=== PATIENT | female | born 1955 ===

== ENCOUNTER 2022-10-10 21:14 | Emergency (ER) | payer SELFPAY ==
[~2022-10-10] VITALS: Ht 157.5 cm; Wt 75.7 kg
[2022-10-10] MEDS ORDERED: SERT50TA PO (23:51)
[2022-10-10] MEDS ORDERED: LEVO50TA PO (23:51)
[2022-10-10] MEDS ORDERED: METO-357 PO (23:51)
[2022-10-10] MEDS ORDERED: TRAZ-252 PO (23:51)
[2022-10-10] MEDS ORDERED: ONDA4TAB5 PO (23:51)
[2022-10-10] MEDS ORDERED: CALC300T4 PO (23:51)
[2022-10-10] MEDS ORDERED: DEXT33GE7 PO (23:51)
[2022-10-10] MEDS ORDERED: DOCU250C14 PO (23:51)
[2022-10-10] MEDS ORDERED: CYAN100T44 PO ×2 (23:51)
[2022-10-10] MEDS ORDERED: LEVA0.6320 IH (23:51)
[2022-10-10] MEDS ORDERED: HYDR25TA86 PO (23:51)
[2022-10-10] MEDS ORDERED: METF-442 PO (23:51)
[2022-10-10] MEDS ORDERED: POLY17PO4 PO (23:51)
[2022-10-10] MEDS ORDERED: MAGN400T8 PO (23:51)
[2022-10-10] MEDS ORDERED: APIX5TAB PO (23:51)
[2022-10-10] MEDS ORDERED: AZAT50TA18 PO (23:51)
[2022-10-10] MEDS ORDERED: ACET-73 PO (23:51)
[2022-10-10] MEDS ORDERED: DAPA10TA PO (23:51)
[2022-10-10] MEDS ORDERED: IPRA0.2S6 NEB (23:51)
[2022-10-10] MEDS ORDERED: ATOR40TA PO (23:51)
[2022-10-10] MEDS ORDERED: BISA10SU61 RC (23:51)
[2022-10-10] MEDS ORDERED: POLY15DR27 EACHEYE (23:51)
[2022-10-10] MEDS ORDERED: LOSA50TA3 PO (23:51)
[2022-10-10] MEDS ORDERED: LIDO30AD10 TD (23:51)
[2022-10-10] MEDS ORDERED: INSU3INS6 SQ (23:51)
[2022-10-10] MEDS ORDERED: PANT40TA2 PO (23:51)
[2022-10-10] MEDS ORDERED: GLUC1KIT2 IJ (23:51)
[2022-10-10] MEDS ORDERED: GABA-532 PO (23:51)
[2022-10-10] MEDS ORDERED: INSU200I SQ (23:51)
[2022-10-11] MEDS ORDERED: MICO200S3 VG (07:12)
== END 2022-10-10 22:34 | disposition left against medical advice (07) ==
LOC: ER 21:14
DX: Z53.21 Procedure and treatment not carried out due to patient leaving prior to being seen by health care provider (principal)
CPT/HCPCS: A4663

== ENCOUNTER 2022-10-10 21:51 | Inpatient (IN) | payer MEDICARE, OTHER ==
[~2022-10-10] VITALS: Ht 157.5 cm; Wt 77.1 kg
[2022-10-10 22:10] VITALS: BP 122/65
--- NOTE | 2022-10-10 23:00 | NUR ---
2210- The patient is admitted to the ARU unit. The patient comes from [facility].The patient is aox4 and awake. The patient verbalizes needs and follows directions. There is no respiraotry distress. The patient has left sided weakness. The patient has a patent IV on the right hand 22g that is clean, dry, and intact. Notified MD of the patients arrival to the unit. Call light within reach, two side rails up, bed alarm on, bed on lowest position, and wheels lock. Will continue to monitor throughout the shift. 0100- The patient is watching television. The patient request for an extra blanket. Item is given to the patient. The patient has no sob. Will continue to monitor throughout the shift. 0300- The patient is asleep and has no complains of pain. Will continue to monitor throughout the shift.
[2022-10-10] MEDS ORDERED: LOSA50TA3 PO (23:51)
[2022-10-10] MEDS ORDERED: BISA10SU61 RC (23:51)
[2022-10-10] MEDS ORDERED: GABA-532 PO (23:51)
[2022-10-10] MEDS ORDERED: ATOR40TA PO (23:51)
[2022-10-10] MEDS ORDERED: METF-442 PO (23:51)
[2022-10-10] MEDS ORDERED: LEVA0.6320 IH (23:51)
[2022-10-10] MEDS ORDERED: DAPA10TA PO (23:51)
[2022-10-10] MEDS ORDERED: CYAN100T44 PO ×2 (23:51)
[2022-10-10] MEDS ORDERED: HYDR25TA86 PO (23:51)
[2022-10-10] MEDS ORDERED: APIX5TAB PO (23:51)
[2022-10-10] MEDS ORDERED: AZAT50TA18 PO (23:51)
[2022-10-10] MEDS ORDERED: ONDA4TAB5 PO (23:51)
[2022-10-10] MEDS ORDERED: DOCU250C14 PO (23:51)
[2022-10-10] MEDS ORDERED: INSU200I SQ (23:51)
[2022-10-10] MEDS ORDERED: IPRA0.2S6 NEB (23:51)
[2022-10-10] MEDS ORDERED: DEXT33GE7 PO (23:51)
[2022-10-10] MEDS ORDERED: INSU3INS6 SQ (23:51)
[2022-10-10] MEDS ORDERED: CALC300T4 PO (23:51)
[2022-10-10] MEDS ORDERED: LIDO30AD10 TD (23:51)
[2022-10-10] MEDS ORDERED: METO-357 PO (23:51)
[2022-10-10] MEDS ORDERED: SERT50TA PO (23:51)
[2022-10-10] MEDS ORDERED: MAGN400T8 PO (23:51)
[2022-10-10] MEDS ORDERED: PANT40TA2 PO (23:51)
[2022-10-10] MEDS ORDERED: GLUC1KIT2 IJ (23:51)
[2022-10-10] MEDS ORDERED: TRAZ-252 PO (23:51)
[2022-10-10] MEDS ORDERED: POLY15DR27 EACHEYE (23:51)
[2022-10-10] MEDS ORDERED: ACET-73 PO (23:51)
[2022-10-10] MEDS ORDERED: LEVO50TA PO (23:51)
[2022-10-10] MEDS ORDERED: POLY17PO4 PO (23:51)
[2022-10-11] MEDS ORDERED: REMEDY ESSENTIAL ZINC PASTE 113 GM TOP PRN (00:30)
[2022-10-11 05:00] VITALS: BP 115/60
[2022-10-11] MEDS ORDERED: MICO200S3 VG (07:12)
[2022-10-11] MEDS ORDERED: DEXTROSE 50% 50 ML DISP.SYRIN IV PRN ×2 (07:15→18:45)
[2022-10-11 07:42] VITALS: BP 134/53
[2022-10-11] MEDS: BLOOD SUGAR DIAGNOSTIC 1 EACH STRIP VI SCH ×4 (08:09→21:00)
[2022-10-11 16:32] VITALS: BP 109/52
[2022-10-11] MEDS: INSULIN REGULAR, HUMAN 300 UNIT/3 ML VIAL SQ PRN (17:12)
[2022-10-11] MEDS ORDERED: ONDANSETRON HCL 4 MG TABLET PO PRN (18:30)
[2022-10-11] MEDS ORDERED: CALCIUM CARBONATE 500 MG TAB.CHEW PO PRN (18:30)
[2022-10-11] MEDS ORDERED: BISACODYL 10 MG SUPP.RECT RC PRN (18:30)
[2022-10-11] MEDS ORDERED: hydrALAZINE HCL 25 MG TABLET PO PRN (18:30)
[2022-10-11] MEDS ORDERED: MIRALAX 17 GM POWD.PACK PO PRN (18:30)
[2022-10-11] MEDS ORDERED: Medication Not On Formulary EA (Metformin Hcl 1,000 MG) PO SCH (18:30)
[2022-10-11] MEDS ORDERED: IPRATROPIUM BROMIDE 0.5 MG/2.5 ML NEBU NEB PRN (18:30)
[2022-10-11] MEDS ORDERED: TRAZODONE 50 MG TABLET PO PRN (18:30)
[2022-10-11] MEDS ORDERED: DOCUSATE SODIUM 100 MG CAPSULE PO PRN (18:30)
[2022-10-11] MEDS ORDERED: ALBUTEROL SULFATE 1.25 MG/3 ML NEBU NEB PRN (18:30)
[2022-10-11] MEDS: GABAPENTIN 300 MG CAPSULE PO SCH (19:41)
[2022-10-11] MEDS: ATORVASTATIN 40 MG TABLET PO SCH (20:13)
[2022-10-11] MEDS: APIXABAN 5 MG TABLET PO SCH (20:24)
[2022-10-11 20:31] VITALS: BP 166/86
[2022-10-11] MEDS: POLYVINYL ALCOHOL OPHT DROPS 15 ML BOTTLE EACHEYE PRN (20:42)
[2022-10-11] MEDS ORDERED: BLOOD SUGAR DIAGNOSTIC 1 EACH STRIP VI SCH (21:00)
[2022-10-11] MEDS: INSULIN REGULAR, HUMAN 300 UNITS/3 ML VIAL SQ PRN (21:05)
--- NOTE | 2022-10-11 23:00 | NUR ---
1915- DC duplicate order at md request for insulin sliding scale. The patient is aox4 and awake. The patient verbalizes needs and follows directions. There is no respiraotry distress. The patient has left sided weakness. Call light within reach, two side rails up, bed alarm on, bed on lowest position, and wheels lock. Will continue to monitor throughout the shift. 2200- The patient is watching television. The patient request for an extra pillow. Item is given to the patient. The patient has no sob or complains of pain. Will continue to monitor throughout the shift. 0200- The patient is asleep and has no complains of pain or sob. Will continue to monitor throughout the shift.
[2022-10-12 04:18] VITALS: BP 139/57
[2022-10-12] MEDS: PANTOPRAZOLE SODIUM 40 MG TABLET.DR PO SCH (06:30)
[2022-10-12] MEDS: LEVOTHYROXINE SODIUM 50 MCG TABLET PO SCH (06:30)
[2022-10-12] MEDS: BLOOD SUGAR DIAGNOSTIC 1 EACH STRIP VI SCH ×4 (07:30→22:24)
[2022-10-12 07:33] VITALS: BP 131/57
[2022-10-12] MEDS ORDERED: CYANOCOBALAMIN 100 MCG TABLET PO SCH (09:00)
[2022-10-12] MEDS: GABAPENTIN 300 MG CAPSULE PO SCH ×2 (09:36→16:30)
[2022-10-12] MEDS: MAGNESIUM OXIDE 250 MG TABLET PO SCH (09:36)
[2022-10-12] MEDS: SERTRALINE HCL 50 MG TABLET PO SCH (09:39)
[2022-10-12] MEDS: CYANOCOBALAMIN 100 MCG TABLET PO SCH (09:39)
[2022-10-12] MEDS: METOPROLOL SUCCINATE XL 50 MG TAB.SR.24H PO SCH ×2 (09:39→16:30)
[2022-10-12] MEDS: LOSARTAN POTASSIUM 50 MG TABLET PO SCH ×2 (09:40→16:30)
[2022-10-12] MEDS: AZATHIOPRINE 50 MG TABLET PO SCH (09:40)
[2022-10-12] MEDS: APIXABAN 5 MG TABLET PO SCH ×2 (09:41→22:26)
[2022-10-12] MEDS: ACETAMINOPHEN 325 MG TABLET PO PRN (09:59)
[2022-10-12] MEDS: LIDOCAINE 5% PATCH TD SCH ×2 (10:59)
[2022-10-12] MEDS: INSULIN REGULAR, HUMAN 300 UNIT/3 ML VIAL SQ PRN (12:29)
[2022-10-12] MEDS: CLOTRIMAZOLE 1% VAG CREAM 45 GM TUBE VG SCH (12:31)
[2022-10-12 15:26] VITALS: BP 134/61
[2022-10-12] MEDS: GLUCERNA SHAKE 237 ML CAN PO SCH (16:31)
[2022-10-12] MEDS: METFORMIN HCL 500 MG TABLET PO SCH (17:09)
[2022-10-12 20:00] VITALS: BP 123/62
[2022-10-12] MEDS: ATORVASTATIN 40 MG TABLET PO SCH (22:24)
[2022-10-12] MEDS: INSULIN REGULAR, HUMAN 300 UNITS/3 ML VIAL SQ PRN (22:25)
[2022-10-13] MEDS: LEVOTHYROXINE SODIUM 50 MCG TABLET PO SCH (06:10)
[2022-10-13] MEDS: PANTOPRAZOLE SODIUM 40 MG TABLET.DR PO SCH (06:10)
[2022-10-13] MEDS: BLOOD SUGAR DIAGNOSTIC 1 EACH STRIP VI SCH ×4 (06:26→20:57)
[2022-10-13 07:06] VITALS: BP 132/59
[2022-10-13] MEDS: INSULIN REGULAR, HUMAN 300 UNIT/3 ML VIAL SQ PRN ×3 (08:35→16:55)
[2022-10-13 08:51] VITALS: BP 135/59
[2022-10-13] MEDS ORDERED: Dapagliflozin Propanediol (Farxiga) 10 MG) PO SCH (09:00)
[2022-10-13] MEDS: GABAPENTIN 300 MG CAPSULE PO SCH ×2 (09:44→16:45)
[2022-10-13] MEDS: METFORMIN HCL 500 MG TABLET PO SCH ×2 (09:44→17:43)
[2022-10-13] MEDS: CYANOCOBALAMIN 100 MCG TABLET PO SCH (09:45)
[2022-10-13] MEDS: METOPROLOL SUCCINATE XL 50 MG TAB.SR.24H PO SCH ×2 (09:45→16:48)
[2022-10-13] MEDS: LOSARTAN POTASSIUM 50 MG TABLET PO SCH ×2 (09:45→16:48)
[2022-10-13] MEDS: MAGNESIUM OXIDE 250 MG TABLET PO SCH (09:45)
[2022-10-13] MEDS: SERTRALINE HCL 50 MG TABLET PO SCH (09:45)
[2022-10-13] MEDS: AZATHIOPRINE 50 MG TABLET PO SCH (09:46)
[2022-10-13] MEDS: LIDOCAINE 5% PATCH TD SCH ×2 (09:47)
[2022-10-13] MEDS: APIXABAN 5 MG TABLET PO SCH ×2 (09:48→20:53)
[2022-10-13] MEDS: GLUCERNA SHAKE 237 ML CAN PO SCH ×2 (09:49→16:47)
[2022-10-13] MEDS: POLYVINYL ALCOHOL OPHT DROPS 15 ML BOTTLE EACHEYE PRN (09:50)
--- NOTE | 2022-10-13 11:25 | NUR ---
INDIVIDUALIZED PLAN OF CARE
[2022-10-13 16:07] VITALS: BP 117/51
--- NOTE | 2022-10-13 19:42 | NUR ---
RECEIVED REPORT FROM FELIPA SPRAGUE RN. PATIENT IS ALERT & ORIENTED X4, AND ABLE TO SPEAK VIETNAMESE. VITAL SIGNS STABLE. PATIENT TOLERATES PO MEDICATIONS AND DIET. PATIENT VOIDS ADEQUATELY. PARTICIPATES WITH PHYSICAL AND OCCUPATIONAL THERAPY SCHEDULED. PATIENT TIM PAIN, BUT DENIES MEDICATIONS TO TREAT. NO ACUTE DISTRESS NOTED. FALL PRECAUTIONS IN PLACE. ALL NEEDS MET AT THIS TIME. ENDORSED CARE TO FELIPA SPRAGUE RN, FOR CONTINUATION OF CARE.
[2022-10-13 20:00] VITALS: BP 102/72
[2022-10-13] MEDS: ATORVASTATIN 40 MG TABLET PO SCH (20:53)
[2022-10-13] MEDS: CLOTRIMAZOLE 1% VAG CREAM 45 GM TUBE VG SCH (20:54)
[2022-10-13] MEDS: INSULIN REGULAR, HUMAN 300 UNITS/3 ML VIAL SQ PRN (21:00)
[2022-10-14 04:00] VITALS: BP 102/44
[2022-10-14] MEDS: LEVOTHYROXINE SODIUM 50 MCG TABLET PO SCH (06:25)
[2022-10-14] MEDS: PANTOPRAZOLE SODIUM 40 MG TABLET.DR PO SCH (06:25)
[2022-10-14] MEDS: BLOOD SUGAR DIAGNOSTIC 1 EACH STRIP VI SCH ×4 (06:29→21:23)
[2022-10-14 08:00] VITALS: BP 134/72
[2022-10-14] MEDS: METFORMIN HCL 500 MG TABLET PO SCH ×2 (08:07→17:33)
[2022-10-14] MEDS: GLUCERNA SHAKE 237 ML CAN PO SCH ×2 (08:08→17:18)
[2022-10-14] MEDS: GABAPENTIN 300 MG CAPSULE PO SCH ×2 (08:49→17:17)
[2022-10-14] MEDS: LOSARTAN POTASSIUM 50 MG TABLET PO SCH ×2 (08:50→17:17)
[2022-10-14] MEDS: METOPROLOL SUCCINATE XL 50 MG TAB.SR.24H PO SCH ×2 (08:50→17:17)
[2022-10-14] MEDS: CYANOCOBALAMIN 100 MCG TABLET PO SCH (08:51)
[2022-10-14] MEDS: SERTRALINE HCL 50 MG TABLET PO SCH (08:51)
[2022-10-14] MEDS: APIXABAN 5 MG TABLET PO SCH ×2 (08:52→21:15)
[2022-10-14] MEDS: LIDOCAINE 5% PATCH TD SCH ×2 (08:55→09:23)
[2022-10-14] MEDS: MAGNESIUM OXIDE 250 MG TABLET PO SCH (09:28)
[2022-10-14] MEDS: DAPAGLIFLOZIN PROPANEDIOL 5 MG TABLET PO SCH (09:29)
[2022-10-14] MEDS: AZATHIOPRINE 50 MG TABLET PO SCH (09:29)
[2022-10-14] MEDS: INSULIN REGULAR, HUMAN 300 UNIT/3 ML VIAL SQ PRN ×3 (12:21→21:29)
[2022-10-14 16:00] VITALS: BP 127/67
--- NOTE | 2022-10-14 16:19 | NUR ---
0730-Rec'd patient in bed, awake, able to verbalize her needs, denies pain. No acute respiratory distress noted; no s/s of hypo/hyperglycemia, oral fluids offered and taken well, encouraged to use call light for help with good understanding. 0900-Scheduled medication administered as ordered, no ASE noted. Oral fluids taken well. Assist as needed.
--- NOTE | 2022-10-14 18:45 | NUR ---
Patient cooperative with her care/nurses and her treatment, needs attended well and me. No SILVIA or unusual happenings during shift. All needs anticipated and met.
[2022-10-14 20:00] VITALS: BP 122/55
[2022-10-14] MEDS: ATORVASTATIN 40 MG TABLET PO SCH (21:14)
[2022-10-14] MEDS: CLOTRIMAZOLE 1% VAG CREAM 45 GM TUBE VG SCH (21:17)
[2022-10-15 05:57] VITALS: BP 119/57
[2022-10-15] MEDS: BLOOD SUGAR DIAGNOSTIC 1 EACH STRIP VI SCH ×4 (06:11→20:33)
[2022-10-15] MEDS: PANTOPRAZOLE SODIUM 40 MG TABLET.DR PO SCH (06:11)
[2022-10-15] MEDS: LEVOTHYROXINE SODIUM 50 MCG TABLET PO SCH (06:11)
[2022-10-15] MEDS: METFORMIN HCL 500 MG TABLET PO SCH ×2 (07:53→17:35)
[2022-10-15] MEDS: INSULIN REGULAR, HUMAN 300 UNIT/3 ML VIAL SQ PRN ×3 (07:55→17:33)
[2022-10-15 08:01] VITALS: BP 110/43
[2022-10-15] MEDS: GABAPENTIN 300 MG CAPSULE PO SCH ×2 (08:41→16:39)
[2022-10-15] MEDS: LOSARTAN POTASSIUM 50 MG TABLET PO SCH ×2 (08:41→16:41)
[2022-10-15] MEDS: SERTRALINE HCL 50 MG TABLET PO SCH (08:42)
[2022-10-15] MEDS: LIDOCAINE 5% PATCH TD SCH ×2 (08:42→09:24)
[2022-10-15] MEDS: CYANOCOBALAMIN 100 MCG TABLET PO SCH (08:42)
[2022-10-15] MEDS: METOPROLOL SUCCINATE XL 50 MG TAB.SR.24H PO SCH ×2 (08:42→16:42)
[2022-10-15] MEDS: MAGNESIUM OXIDE 250 MG TABLET PO SCH (08:43)
[2022-10-15] MEDS: AZATHIOPRINE 50 MG TABLET PO SCH (08:44)
[2022-10-15] MEDS: DAPAGLIFLOZIN PROPANEDIOL 5 MG TABLET PO SCH (08:44)
[2022-10-15] MEDS: APIXABAN 5 MG TABLET PO SCH ×2 (08:45→20:21)
[2022-10-15] MEDS: GLUCERNA SHAKE 237 ML CAN PO SCH ×2 (08:47→17:23)
--- NOTE | 2022-10-15 10:54 | NUR ---
0730-Rec'd patient in bed awake, VSS, denies pain. No resp. distress noted, no s/s of hypo/hyperglycemia, oral fluids offered and taken well. Safety measures in place and call light at reach. 0900-scheduled medication administered as ordered with no ASE noted., Lidocaine patch applied to left shoulder. Oral fluids taken well. Will monitor.
--- NOTE | 2022-10-15 14:45 | NUR ---
INTERDISCIPLINARY TEAM CONFERENCE
[2022-10-15 16:00] VITALS: BP 126/55
--- NOTE | 2022-10-15 19:03 | NUR ---
Patient c/o slight vaginal bleeding upon urination when she was assisted to the toilet and noticed upon wiping herself. Asked patient if she was experiencing any bladder pain/discomfort and denied. Per Dr. Hyatt, to do a UA. Patient refused to straight cath, stated she'll collect sample herself tomorrow when she uses the toilet. Endorsed appropriately to incoming relieving RN.
[2022-10-15 20:00] VITALS: BP 112/48
--- NOTE | 2022-10-15 20:00 | NUR ---
NSG: Received patient lying in bed. a/o x4. no c/o pain or discomfort at this time. No acute respiratory distress noted; no s/s of hypo/hyperglycemia, oral fluids offered and taken well call light w/in reach.
[2022-10-15] MEDS: ATORVASTATIN 40 MG TABLET PO SCH (20:19)
[2022-10-15] MEDS: CLOTRIMAZOLE 1% VAG CREAM 45 GM TUBE VG SCH (20:21)
[2022-10-15] MEDS: INSULIN REGULAR, HUMAN 300 UNITS/3 ML VIAL SQ PRN (20:33)
--- NOTE | 2022-10-16 01:05 | NUR ---
nsg: patient is resting quietly. no s/s of pain or discomfort at this time. call light w/in reach.
[2022-10-16 04:00] VITALS: BP 118/49
--- NOTE | 2022-10-16 06:17 | NUR ---
NSG: Remain calm and cooperative through the shift. no c/o pain or discomfort at this time. call light w/in reach.
[2022-10-16] MEDS: LEVOTHYROXINE SODIUM 50 MCG TABLET PO SCH (06:21)
[2022-10-16] MEDS: PANTOPRAZOLE SODIUM 40 MG TABLET.DR PO SCH (06:21)
[2022-10-16] MEDS: BLOOD SUGAR DIAGNOSTIC 1 EACH STRIP VI SCH ×4 (06:29→20:54)
[2022-10-16] MEDS: METFORMIN HCL 500 MG TABLET PO SCH ×2 (07:49→17:39)
[2022-10-16 08:01] VITALS: BP 139/43
[2022-10-16] MEDS: INSULIN REGULAR, HUMAN 300 UNIT/3 ML VIAL SQ PRN ×3 (09:18→16:41)
[2022-10-16] MEDS: APIXABAN 5 MG TABLET PO SCH ×2 (09:21→20:45)
[2022-10-16] MEDS: GABAPENTIN 300 MG CAPSULE PO SCH ×2 (09:22→16:20)
[2022-10-16] MEDS: MAGNESIUM OXIDE 250 MG TABLET PO SCH (09:22)
[2022-10-16] MEDS: DAPAGLIFLOZIN PROPANEDIOL 5 MG TABLET PO SCH (09:22)
[2022-10-16] MEDS: CYANOCOBALAMIN 100 MCG TABLET PO SCH (09:22)
[2022-10-16] MEDS: AZATHIOPRINE 50 MG TABLET PO SCH (09:23)
[2022-10-16] MEDS: SERTRALINE HCL 50 MG TABLET PO SCH (09:23)
[2022-10-16] MEDS: LOSARTAN POTASSIUM 50 MG TABLET PO SCH ×3 (09:26→16:27)
[2022-10-16] MEDS: METOPROLOL SUCCINATE XL 50 MG TAB.SR.24H PO SCH ×2 (09:26→17:00)
[2022-10-16] MEDS: GLUCERNA SHAKE 237 ML CAN PO SCH ×2 (09:26→17:00)
[2022-10-16] MEDS: LIDOCAINE 5% PATCH TD SCH ×2 (09:26→09:31)
[2022-10-16 09:59] LABS: *BILIRUBIN,URIN NEGATIVE (NEGATIVE); *BLOOD, URINE NEGATIVE (NEGATIVE); *CLARITY,URINE SLIGHTLY CLOUDY (CLEAR); *COLOR,URINE YELLOW (YELLOW); *KETONES,URINE NEGATIVE (NEGATIVE); *UROBILINOGEN,URINE 0.2 E.U./dl (NORMAL); LEUKOCYTE ESTERASE ,URINE NEGATIVE (NEGATIVE); NITRITE, URINE NEGATIVE (NEGATIVE); UGLUCOSE 3+ (NEGATIVE)
[2022-10-16 13:39] LABS: BACTERIA,URINE MODERATE /HPF (NONE SEEN); RBC,URINE 0-3 /HPF (0-3); SQUAMOUS EPITHELIAL CELL,UR FEW /HPF (NONE SEEN); WBC,URINE 0-3 /HPF (0-3)
[2022-10-16 15:50] VITALS: BP 112/56
[2022-10-16 20:00] VITALS: BP 107/45
[2022-10-16] MEDS: ATORVASTATIN 40 MG TABLET PO SCH (20:44)
[2022-10-16] MEDS: CLOTRIMAZOLE 1% VAG CREAM 45 GM TUBE VG SCH (20:45)
[2022-10-16] MEDS: INSULIN REGULAR, HUMAN 300 UNITS/3 ML VIAL SQ PRN (20:56)
[2022-10-17 04:00] VITALS: BP 130/78
--- NOTE | 2022-10-17 04:05 | NUR ---
NSG: Remain calm and cooperative. slept will. assisted with adl's. resting in bed comfortably. call light w/in reach.
[2022-10-17] MEDS: LEVOTHYROXINE SODIUM 50 MCG TABLET PO SCH (06:09)
[2022-10-17] MEDS: PANTOPRAZOLE SODIUM 40 MG TABLET.DR PO SCH (06:09)
[2022-10-17] MEDS: BLOOD SUGAR DIAGNOSTIC 1 EACH STRIP VI SCH ×4 (06:22→21:04)
[2022-10-17] MEDS: LIDOCAINE 5% PATCH TD SCH ×2 (09:17→09:22)
[2022-10-17] MEDS: METOPROLOL SUCCINATE XL 50 MG TAB.SR.24H PO SCH ×2 (09:18→17:23)
[2022-10-17] MEDS: CYANOCOBALAMIN 100 MCG TABLET PO SCH (09:18)
[2022-10-17] MEDS: SERTRALINE HCL 50 MG TABLET PO SCH (09:18)
[2022-10-17] MEDS: GABAPENTIN 300 MG CAPSULE PO SCH ×2 (09:18→17:20)
[2022-10-17] MEDS: METFORMIN HCL 500 MG TABLET PO SCH ×2 (09:18→17:20)
[2022-10-17] MEDS: LOSARTAN POTASSIUM 50 MG TABLET PO SCH ×2 (09:18→17:20)
[2022-10-17] MEDS: APIXABAN 5 MG TABLET PO SCH ×2 (09:19→21:06)
[2022-10-17] MEDS: MAGNESIUM OXIDE 250 MG TABLET PO SCH (09:20)
[2022-10-17] MEDS: AZATHIOPRINE 50 MG TABLET PO SCH (09:20)
[2022-10-17] MEDS: DAPAGLIFLOZIN PROPANEDIOL 5 MG TABLET PO SCH (09:20)
[2022-10-17] MEDS: GLUCERNA SHAKE 237 ML CAN PO SCH ×2 (09:23→17:21)
[2022-10-17 15:10] VITALS: BP 116/53
[2022-10-17 20:00] VITALS: BP 145/61
[2022-10-17] MEDS: ATORVASTATIN 40 MG TABLET PO SCH (20:52)
[2022-10-17] MEDS: CLOTRIMAZOLE 1% VAG CREAM 45 GM TUBE VG SCH (20:53)
[2022-10-17] MEDS: INSULIN REGULAR, HUMAN 300 UNITS/3 ML VIAL SQ PRN (21:09)
--- NOTE | 2022-10-18 04:01 | NUR ---
Awake alert and oriented. VSS Needs attended. All due meds given without difficulty. No complaints presented during the shift. Admitted for CVA with left side hemiparesis. Continent of bowel and bladder. Will monitor patient. Fall precautions maintained.
[2022-10-18] MEDS: PANTOPRAZOLE SODIUM 40 MG TABLET.DR PO SCH (06:20)
[2022-10-18] MEDS: LEVOTHYROXINE SODIUM 50 MCG TABLET PO SCH (06:39)
[2022-10-18] MEDS: BLOOD SUGAR DIAGNOSTIC 1 EACH STRIP VI SCH ×4 (06:40→21:05)
[2022-10-18] MEDS: GLUCERNA SHAKE 237 ML CAN PO SCH ×2 (08:48→17:41)
[2022-10-18] MEDS: DAPAGLIFLOZIN PROPANEDIOL 5 MG TABLET PO SCH (08:49)
[2022-10-18] MEDS: GABAPENTIN 300 MG CAPSULE PO SCH ×2 (08:49→17:33)
[2022-10-18] MEDS: AZATHIOPRINE 50 MG TABLET PO SCH (08:49)
[2022-10-18] MEDS: MAGNESIUM OXIDE 250 MG TABLET PO SCH (08:49)
[2022-10-18] MEDS: METFORMIN HCL 500 MG TABLET PO SCH ×2 (08:50→17:33)
[2022-10-18] MEDS: LIDOCAINE 5% PATCH TD SCH ×2 (08:50→09:16)
[2022-10-18] MEDS: SERTRALINE HCL 50 MG TABLET PO SCH (08:50)
[2022-10-18] MEDS: CYANOCOBALAMIN 100 MCG TABLET PO SCH (08:50)
[2022-10-18] MEDS: METOPROLOL SUCCINATE XL 50 MG TAB.SR.24H PO SCH ×2 (08:52→17:35)
[2022-10-18] MEDS: APIXABAN 5 MG TABLET PO SCH ×2 (08:54→20:59)
[2022-10-18] MEDS: LOSARTAN POTASSIUM 50 MG TABLET PO SCH ×2 (08:56→17:00)
[2022-10-18 08:58] VITALS: BP 118/45
--- NOTE | 2022-10-18 09:35 | NUR ---
Dr. Stahl at pt bedside. Notified of pt feeling sleepy in the mornings, "which is not my normal". stated he will check her labs to make sure her thyroid is ok. Pt c/o Left shoulder pain 4/10 and wants her Lidocaine patches after her shower. Per PT Og, pt also c/o tingling in Left knee. Will give medications as ordered and continue to monitor.
[2022-10-18] MEDS: INSULIN REGULAR, HUMAN 300 UNIT/3 ML VIAL SQ PRN ×2 (12:23→17:57)
[2022-10-18 16:32] VITALS: BP 131/71
--- NOTE | 2022-10-18 19:25 | NUR ---
Endorsed pt to austin [place] RN. Pt stable, no s/s of distress noted, no SOB.
[2022-10-18 20:07] VITALS: BP 140/75
[2022-10-18] MEDS: ATORVASTATIN 40 MG TABLET PO SCH (20:58)
[2022-10-18] MEDS: CLOTRIMAZOLE 1% VAG CREAM 45 GM TUBE VG SCH (20:58)
[2022-10-19 04:47] VITALS: BP 106/62
--- NOTE | 2022-10-19 04:52 | NUR ---
Quiet night. AAOx4 No acute distress noted. VSS. All needs attended. Continent of bowel and bladder. All due meds given. Denies any pain nor any discomfort. Will monitor patient.
[2022-10-19] MEDS: PANTOPRAZOLE SODIUM 40 MG TABLET.DR PO SCH (06:01)
[2022-10-19] MEDS: LEVOTHYROXINE SODIUM 50 MCG TABLET PO SCH (06:01)
[2022-10-19] MEDS: BLOOD SUGAR DIAGNOSTIC 1 EACH STRIP VI SCH ×4 (06:31→20:57)
[2022-10-19 06:55] LABS: HEMATOCRIT 35.8 % (31.2-41.9); MEAN CORPUSCULAR HEMOGLOBIN 29.8 uug (24.7-32.8); PLATELET COUNT (AUTO) 199 K/uL (179-408)
[2022-10-19 07:34] VITALS: BP 104/41
[2022-10-19 07:42] LABS: BILIRUBIN,TOTAL 0.7 mg/dL (0.2-1.0); CREATININE 0.9 mg/dL (0.6-1.3); MAGNESIUM 1.6 mg/dL (1.8-2.4); PHOSPHOROUS 3.8 mg/dL (2.5-4.9); POTASSIUM 3.9 mmol/L (3.5-5.1); TOTAL PROTEIN, SERUM 6.7 g/dL (6.4-8.2)
[2022-10-19] MEDS: METOPROLOL SUCCINATE XL 50 MG TAB.SR.24H PO SCH ×2 (09:00→17:34)
[2022-10-19] MEDS: CYANOCOBALAMIN 100 MCG TABLET PO SCH (09:50)
[2022-10-19] MEDS: METFORMIN HCL 500 MG TABLET PO SCH ×2 (09:50→17:34)
[2022-10-19] MEDS: MAGNESIUM OXIDE 250 MG TABLET PO SCH (09:50)
[2022-10-19] MEDS: GABAPENTIN 300 MG CAPSULE PO SCH ×2 (09:50→17:34)
[2022-10-19] MEDS: DAPAGLIFLOZIN PROPANEDIOL 5 MG TABLET PO SCH (09:51)
[2022-10-19] MEDS: AZATHIOPRINE 50 MG TABLET PO SCH (09:51)
[2022-10-19] MEDS: APIXABAN 5 MG TABLET PO SCH ×2 (09:53→21:01)
[2022-10-19] MEDS: LOSARTAN POTASSIUM 50 MG TABLET PO SCH ×2 (09:54→17:00)
[2022-10-19] MEDS: POLYVINYL ALCOHOL OPHT DROPS 15 ML BOTTLE EACHEYE PRN (09:55)
[2022-10-19] MEDS: LIDOCAINE 5% PATCH TD SCH ×2 (09:56)
[2022-10-19] MEDS: GLUCERNA SHAKE 237 ML CAN PO SCH ×2 (09:56→17:36)
[2022-10-19] MEDS: SERTRALINE HCL 50 MG TABLET PO SCH (10:04)
[2022-10-19] MEDS ORDERED: MAGNESIUM OXIDE 400 MG TABLET PO ONE (11:00)
[2022-10-19] MEDS: INSULIN REGULAR, HUMAN 300 UNIT/3 ML VIAL SQ PRN ×2 (12:49→17:45)
[2022-10-19 15:44] VITALS: BP 135/58
--- NOTE | 2022-10-19 19:33 | NUR ---
RECEIVED REPORT FROM FELIPA ROSE RN. PATIENT IS ALERT & ORIENTED X4, AND ABLE TO SPEAK ARMENIAN. VITAL SIGNS STABLE. PATIENT TOLERATES PO MEDICATIONS AND DIET. PATIENT VOIDS ADEQUATELY. PARTICIPATES WITH PHYSICAL AND OCCUPATIONAL THERAPY SCHEDULED. PATIENT DENIES PAIN. NO ACUTE DISTRESS NOTED. PATIENT'S SON AND SISTER VISITED. FALL PRECAUTIONS IN PLACE. ALL NEEDS MET AT THIS TIME. ENDORSED CARE TO FELIPA SPRAGUE RN, FOR CONTINUATION OF CARE.
[2022-10-19 20:00] VITALS: BP 126/67
[2022-10-19] MEDS: ATORVASTATIN 40 MG TABLET PO SCH (20:58)
[2022-10-19] MEDS: INSULIN REGULAR, HUMAN 300 UNITS/3 ML VIAL SQ PRN (21:06)
[2022-10-20 04:00] VITALS: BP 114/46
[2022-10-20] MEDS: LEVOTHYROXINE SODIUM 50 MCG TABLET PO SCH (06:11)
[2022-10-20] MEDS: PANTOPRAZOLE SODIUM 40 MG TABLET.DR PO SCH (06:11)
[2022-10-20] MEDS: BLOOD SUGAR DIAGNOSTIC 1 EACH STRIP VI SCH ×4 (06:16→21:32)
[2022-10-20 07:35] VITALS: BP 108/42
[2022-10-20] MEDS: METOPROLOL SUCCINATE XL 50 MG TAB.SR.24H PO SCH ×2 (09:00→17:00)
[2022-10-20] MEDS: SERTRALINE HCL 50 MG TABLET PO SCH (09:00)
[2022-10-20] MEDS: METFORMIN HCL 500 MG TABLET PO SCH ×2 (09:17→17:02)
[2022-10-20] MEDS: GLUCERNA SHAKE 237 ML CAN PO SCH (09:17)
[2022-10-20] MEDS: INSULIN REGULAR, HUMAN 300 UNIT/3 ML VIAL SQ PRN ×3 (09:20→17:07)
[2022-10-20] MEDS: CYANOCOBALAMIN 100 MCG TABLET PO SCH (09:22)
[2022-10-20] MEDS: APIXABAN 5 MG TABLET PO SCH ×2 (09:22→21:32)
[2022-10-20] MEDS: GABAPENTIN 300 MG CAPSULE PO SCH ×2 (09:22→17:03)
[2022-10-20] MEDS: LOSARTAN POTASSIUM 50 MG TABLET PO SCH ×2 (09:23→17:00)
[2022-10-20] MEDS: AZATHIOPRINE 50 MG TABLET PO SCH (09:24)
[2022-10-20] MEDS: MAGNESIUM OXIDE 250 MG TABLET PO SCH (09:24)
[2022-10-20] MEDS: DAPAGLIFLOZIN PROPANEDIOL 5 MG TABLET PO SCH (09:24)
[2022-10-20] MEDS: POLYVINYL ALCOHOL OPHT DROPS 15 ML BOTTLE EACHEYE PRN (09:25)
[2022-10-20] MEDS: LIDOCAINE 5% PATCH TD SCH ×2 (09:25)
[2022-10-20 16:23] VITALS: BP 103/64
[2022-10-20 20:00] VITALS: BP 122/63
--- NOTE | 2022-10-20 20:16 | NUR ---
RECEIVED REPORT FROM FELIPA BELTRAN RN. PATIENT IS ALERT & ORIENTED X4, AND ABLE TO SPEAK SWEDISH. VITAL SIGNS STABLE. PATIENT TOLERATES PO MEDICATIONS AND DIET. PATIENT VOIDS ADEQUATELY. PARTICIPATES WITH PHYSICAL AND OCCUPATIONAL THERAPY SCHEDULED. PATIENT DENIES PAIN. PER MD ORDER, PATIENT TO GET A CT OF THE LEFT SHOULDER TO RULE OUT TENDON RUPTURE. PATIENT GOT THE SCAN. NO ACUTE DISTRESS NOTED. FALL PRECAUTIONS IN PLACE. ALL NEEDS MET AT THIS TIME. ENDORSED CARE TO FELIPA BELTRAN RN, FOR CONTINUATION OF CARE.
[2022-10-20] MEDS: ATORVASTATIN 40 MG TABLET PO SCH (21:31)
[2022-10-20] MEDS: ACETAMINOPHEN 325 MG TABLET PO PRN (21:31)
[2022-10-20] MEDS: INSULIN REGULAR, HUMAN 300 UNITS/3 ML VIAL SQ PRN (22:43)
[2022-10-21 05:23] VITALS: BP 111/58
[2022-10-21] MEDS: LEVOTHYROXINE SODIUM 50 MCG TABLET PO SCH (06:42)
[2022-10-21] MEDS: PANTOPRAZOLE SODIUM 40 MG TABLET.DR PO SCH (06:43)
[2022-10-21] MEDS: BLOOD SUGAR DIAGNOSTIC 1 EACH STRIP VI SCH ×4 (06:46→20:32)
--- NOTE | 2022-10-21 07:07 | NUR ---
Patient awake ,alert, and oriented x4. Left sided weakness noted. Room air. No acute distress. Voided in bedpan this shift.
[2022-10-21] MEDS: INSULIN REGULAR, HUMAN 300 UNIT/3 ML VIAL SQ PRN ×3 (07:43→17:06)
[2022-10-21 07:58] VITALS: BP 120/46
[2022-10-21] MEDS: METFORMIN HCL 500 MG TABLET PO SCH ×2 (08:28→17:38)
[2022-10-21] MEDS: SERTRALINE HCL 50 MG TABLET PO SCH (08:29)
[2022-10-21] MEDS: CYANOCOBALAMIN 100 MCG TABLET PO SCH (08:30)
[2022-10-21] MEDS: GABAPENTIN 300 MG CAPSULE PO SCH ×2 (08:30→16:52)
[2022-10-21] MEDS: LOSARTAN POTASSIUM 50 MG TABLET PO SCH ×2 (08:30→16:52)
[2022-10-21] MEDS: APIXABAN 5 MG TABLET PO SCH ×2 (08:31→20:27)
[2022-10-21] MEDS: AZATHIOPRINE 50 MG TABLET PO SCH (08:32)
[2022-10-21] MEDS: MAGNESIUM OXIDE 250 MG TABLET PO SCH (08:33)
[2022-10-21] MEDS: DAPAGLIFLOZIN PROPANEDIOL 5 MG TABLET PO SCH (08:33)
[2022-10-21] MEDS: LIDOCAINE 5% PATCH TD SCH ×2 (08:36→09:07)
[2022-10-21] MEDS: METOPROLOL SUCCINATE XL 50 MG TAB.SR.24H PO SCH ×2 (09:12→16:52)
--- NOTE | 2022-10-21 11:21 | NUR ---
0730-REC'D PATIENT IN BED, AWAKE, ALERT AND VERBALLY COMMUNICATIVE. NO RESP. DISTRESS/SOB, SAFETY MEASURE IN PLACE/CALL LIGHT AT REACH. 0900-SCHEDULED MEDICATION ADMINISTERED, NO ASE NOTED, ORAL FLUIDS TAKEN WELL, ENCOURAGED TO USE CALL LIGHT FOR HELP WHEN NEEDED WITH GOOD UNDERSTANDING.
[2022-10-21 16:16] VITALS: BP 138/60
[2022-10-21 20:22] VITALS: BP 129/58
[2022-10-21] MEDS: ATORVASTATIN 40 MG TABLET PO SCH (20:26)
[2022-10-21] MEDS: INSULIN REGULAR, HUMAN 300 UNITS/3 ML VIAL SQ PRN (20:35)
--- NOTE | 2022-10-22 04:06 | NUR ---
Resting in bed upon initial rounds. AAOx4 All needs attended. VSS All due meds given without difficulty. Kept comfortable. Will monitor patient. Continent of bowel and bladder. No BM this shift. Accucheck @ 2100 was 155. Fall precautions maintained. Siderails up for safety.
[2022-10-22 04:33] VITALS: BP 99/58
[2022-10-22] MEDS: PANTOPRAZOLE SODIUM 40 MG TABLET.DR PO SCH (06:01)
[2022-10-22] MEDS: LEVOTHYROXINE SODIUM 50 MCG TABLET PO SCH (06:01)
[2022-10-22] MEDS: BLOOD SUGAR DIAGNOSTIC 1 EACH STRIP VI SCH ×4 (06:41→20:57)
[2022-10-22 08:52] VITALS: BP 126/46
[2022-10-22] MEDS: LOSARTAN POTASSIUM 50 MG TABLET PO SCH ×2 (09:01→16:50)
[2022-10-22] MEDS: CYANOCOBALAMIN 100 MCG TABLET PO SCH (09:01)
[2022-10-22] MEDS: MAGNESIUM OXIDE 250 MG TABLET PO SCH (09:01)
[2022-10-22] MEDS: GABAPENTIN 300 MG CAPSULE PO SCH ×2 (09:01→16:49)
[2022-10-22] MEDS: AZATHIOPRINE 50 MG TABLET PO SCH (09:01)
[2022-10-22] MEDS: METOPROLOL SUCCINATE XL 50 MG TAB.SR.24H PO SCH ×2 (09:01→16:50)
[2022-10-22] MEDS: LIDOCAINE 5% PATCH TD SCH ×2 (09:02)
[2022-10-22] MEDS: METFORMIN HCL 500 MG TABLET PO SCH ×2 (09:02→17:41)
[2022-10-22] MEDS: DAPAGLIFLOZIN PROPANEDIOL 5 MG TABLET PO SCH (09:03)
[2022-10-22] MEDS: SERTRALINE HCL 50 MG TABLET PO SCH (09:03)
[2022-10-22] MEDS: APIXABAN 5 MG TABLET PO SCH ×2 (09:04→20:56)
[2022-10-22] MEDS: INSULIN REGULAR, HUMAN 300 UNIT/3 ML VIAL SQ PRN ×3 (09:10→16:55)
--- NOTE | 2022-10-22 12:00 | NUR ---
Pt is working with pt. will do accucheck when pt is back to unit.
[2022-10-22] MEDS: ACETAMINOPHEN 325 MG TABLET PO PRN (12:15)
[2022-10-22] MEDS: NUTRISOURCE FIBER 4 GM PACKET PO SCH ×2 (12:15→16:51)
[2022-10-22] MEDS ORDERED: LIDOCAINE HCL 1% 20 ML VIAL IJ ONE (13:15)
[2022-10-22] MEDS ORDERED: TRIAMCINOLONE ACETONIDE 40 MG/1 ML VIAL IM ONE (13:15)
--- NOTE | 2022-10-22 15:26 | NUR ---
INTERDISCIPLINARY TEAM CONFERENCE
[2022-10-22 16:49] VITALS: BP 142/74
--- NOTE | 2022-10-22 18:05 | NUR ---
shift note; no acute changes. no sob complain. pt tolerated pt well; pt complained of pain on the heel and shoulder. pt was seen by dr. naik. cortisol shot to the shoulder was administered by . pt was advised to do heel exercise to relieve heel pain. ct thoracic spine resulted md was notified. call light within reach; bed locked; pt needs met; will endorsed to noc shift.
[2022-10-22 20:00] VITALS: BP 108/55
[2022-10-22] MEDS: ATORVASTATIN 40 MG TABLET PO SCH (20:54)
[2022-10-22] MEDS: INSULIN REGULAR, HUMAN 300 UNITS/3 ML VIAL SQ PRN (21:00)
[2022-10-23 04:00] VITALS: BP 122/62
--- NOTE | 2022-10-23 04:20 | NUR ---
AAOx4 Continent of bowel and bladder. Needs attended. All due meds given without difficulty. Denies any pain nor any discomfort. Will monitor patient. VSS.
[2022-10-23] MEDS: ACETAMINOPHEN 325 MG TABLET PO PRN (05:32)
[2022-10-23] MEDS: LEVOTHYROXINE SODIUM 50 MCG TABLET PO SCH (06:08)
[2022-10-23] MEDS: PANTOPRAZOLE SODIUM 40 MG TABLET.DR PO SCH (06:08)
[2022-10-23] MEDS: BLOOD SUGAR DIAGNOSTIC 1 EACH STRIP VI SCH ×4 (06:35→21:03)
[2022-10-23] MEDS: INSULIN REGULAR, HUMAN 300 UNIT/3 ML VIAL SQ PRN ×4 (07:40→21:10)
[2022-10-23 08:00] VITALS: BP 117/58
[2022-10-23] MEDS: GABAPENTIN 300 MG CAPSULE PO SCH ×2 (08:25→16:59)
[2022-10-23] MEDS: LOSARTAN POTASSIUM 50 MG TABLET PO SCH ×2 (08:25→16:59)
[2022-10-23] MEDS: METOPROLOL SUCCINATE XL 50 MG TAB.SR.24H PO SCH ×2 (08:25→16:59)
[2022-10-23] MEDS: CYANOCOBALAMIN 100 MCG TABLET PO SCH (08:27)
[2022-10-23] MEDS: METFORMIN HCL 500 MG TABLET PO SCH ×2 (08:27→17:36)
[2022-10-23] MEDS: LIDOCAINE 5% PATCH TD SCH ×2 (08:27→09:24)
[2022-10-23] MEDS: SERTRALINE HCL 50 MG TABLET PO SCH (08:27)
[2022-10-23] MEDS: APIXABAN 5 MG TABLET PO SCH ×2 (08:28→21:11)
[2022-10-23] MEDS: MAGNESIUM OXIDE 250 MG TABLET PO SCH (08:29)
[2022-10-23] MEDS: DAPAGLIFLOZIN PROPANEDIOL 5 MG TABLET PO SCH (08:29)
[2022-10-23] MEDS: AZATHIOPRINE 50 MG TABLET PO SCH (08:30)
[2022-10-23] MEDS: NUTRISOURCE FIBER 4 GM PACKET PO SCH ×2 (09:25→17:01)
--- NOTE | 2022-10-23 10:34 | NUR ---
0730-REC'D IN BED. NO APPARENT RESP. DISTRESS NOTED. PATIENT AWAKE, DENIES PAIN. NO S/S OF HYPO/HTN NOTED. ORAL FLUIDS TAKEN WELL; SAFETY MEASURES IN PLACE AND CALL LIGHT AT REACH. 0900-SCHEDULED MEDICATION ADMINISTERED WITH NO ASE NOTED, ORAL FLUIDS TAKEN WELL. ASSISTED PATIENT TO THE RESTROOM AND HAD A LARGE SOFT BM. ASSISTED BACK TO HER BED. 0930-PATIENT OOB DOWN TO THE GYM FOR HER REHAB SESSION, PATIENT DENIES PAIN/DISCOMFORT/HEADACHE/DIZZINESS AT THIS TIME.
[2022-10-23 17:12] VITALS: BP 132/75
--- NOTE | 2022-10-23 18:42 | NUR ---
Patient remains in stable conditions, no changes noted during shift. Eating and drinking well. Complaint with care/treatment/cooperative with nursing staff. All needs anticipated and met.
[2022-10-23 20:00] VITALS: BP 139/58
[2022-10-23] MEDS: ATORVASTATIN 40 MG TABLET PO SCH (21:12)
[2022-10-24 04:28] VITALS: BP 98/68
[2022-10-24] MEDS: PANTOPRAZOLE SODIUM 40 MG TABLET.DR PO SCH (06:02)
[2022-10-24] MEDS: LEVOTHYROXINE SODIUM 50 MCG TABLET PO SCH (06:02)
--- NOTE | 2022-10-24 06:18 | NUR ---
Quiet night. Slept well. All needs attended and met. Kept comfortable. Tolerated po meds well. VSS. Continent of bowel and bladder. No BM noted this shift. Accucheck 148. Fall precautions maintained. Siderails up for safety.
[2022-10-24] MEDS: BLOOD SUGAR DIAGNOSTIC 1 EACH STRIP VI SCH ×4 (07:00→21:30)
[2022-10-24 07:51] VITALS: BP 132/51
--- NOTE | 2022-10-24 08:00 | NUR ---
0730-REC'D PATIENT IN BED ASLEEP, NO PHYSICAL OR RESPIRATORY DISTRESS NOTED. ABLE TO WAKE UP, ON R/A AND ROSALIE. WELL, DENIES ANY DISCOMFORT. NO S/S OF HYPO/HYPERGLYCEMIA NOTED. CALL LIGHT AT REACH.
[2022-10-24] MEDS: GABAPENTIN 300 MG CAPSULE PO SCH ×2 (08:18→17:10)
[2022-10-24] MEDS: SERTRALINE HCL 50 MG TABLET PO SCH (08:18)
[2022-10-24] MEDS: METFORMIN HCL 500 MG TABLET PO SCH ×2 (08:18→17:10)
[2022-10-24] MEDS: METOPROLOL SUCCINATE XL 50 MG TAB.SR.24H PO SCH ×2 (08:18→17:10)
[2022-10-24] MEDS: LOSARTAN POTASSIUM 50 MG TABLET PO SCH ×2 (08:18→17:10)
[2022-10-24] MEDS: LIDOCAINE 5% PATCH TD SCH ×2 (08:19→09:16)
[2022-10-24] MEDS: APIXABAN 5 MG TABLET PO SCH ×2 (08:23→21:28)
[2022-10-24] MEDS: MAGNESIUM OXIDE 250 MG TABLET PO SCH (08:23)
[2022-10-24] MEDS: INSULIN REGULAR, HUMAN 300 UNIT/3 ML VIAL SQ PRN ×3 (08:23→17:34)
[2022-10-24] MEDS: DAPAGLIFLOZIN PROPANEDIOL 5 MG TABLET PO SCH (08:24)
[2022-10-24] MEDS: AZATHIOPRINE 50 MG TABLET PO SCH (08:24)
[2022-10-24] MEDS: NUTRISOURCE FIBER 4 GM PACKET PO SCH ×2 (09:15→17:10)
[2022-10-24] MEDS: CYANOCOBALAMIN 100 MCG TABLET PO SCH (09:15)
[2022-10-24 15:21] VITALS: BP 145/70
--- NOTE | 2022-10-24 19:20 | NUR ---
PATIENT ALERT AND ORIENTED X4, VERBALIZES NEEDS AND FOLLOWS DIRECTIONS. REQUIRES OF ASSIST WITH ADLS/PERSONAL CARE/HYGIENE, TRANSFERS AND BED MOBILITY. ASSIST NEEDED DURING SHIFT. PATIENT HAD A SHOWER BY REHAB PERSONNEL TODAY, VSS, NO S/S OF HYPO/HTN/HYPO/HYPERGLYCEMIA NOTED. PATIENT WITH GOOD APPETITE, DENIES GI DISCOMFORT. NO SILVIA FROM HER BASELINE STATUS. ALL NEEDS ANTICIPATED AND MET.
[2022-10-24 20:50] VITALS: BP 104/45
[2022-10-24] MEDS: ATORVASTATIN 40 MG TABLET PO SCH (21:27)
[2022-10-24] MEDS: INSULIN REGULAR, HUMAN 300 UNITS/3 ML VIAL SQ PRN (21:29)
--- NOTE | 2022-10-24 23:00 | NUR ---
1915- The patient is aox4. Vital signs stable. The patient has no IV access. The patient has no complains of pain or sob. Call light within reach, two side rails up, bed at lowest position, and bed alarm on, wheels lock. Will continue to monitor throughout the shift. 2200- The patient request for an extra pillow. Item is given to the patient. The patient has no complains of pain or sob. Will continue to monitor throughout the shift.
[2022-10-25 04:15] VITALS: BP 98/47
[2022-10-25] MEDS: LEVOTHYROXINE SODIUM 50 MCG TABLET PO SCH (06:47)
[2022-10-25] MEDS: PANTOPRAZOLE SODIUM 40 MG TABLET.DR PO SCH (06:47)
[2022-10-25] MEDS: BLOOD SUGAR DIAGNOSTIC 1 EACH STRIP VI SCH ×4 (07:32→21:14)
[2022-10-25] MEDS: INSULIN REGULAR, HUMAN 300 UNITS/3 ML VIAL SQ PRN ×3 (07:33→21:16)
[2022-10-25 07:55] VITALS: BP 131/46
[2022-10-25] MEDS: METFORMIN HCL 500 MG TABLET PO SCH ×2 (08:00→16:58)
[2022-10-25] MEDS: GABAPENTIN 300 MG CAPSULE PO SCH ×2 (09:00→16:58)
[2022-10-25] MEDS: SERTRALINE HCL 50 MG TABLET PO SCH (09:00)
[2022-10-25] MEDS: AZATHIOPRINE 50 MG TABLET PO SCH (09:00)
[2022-10-25] MEDS: DAPAGLIFLOZIN PROPANEDIOL 5 MG TABLET PO SCH (09:00)
[2022-10-25] MEDS: LOSARTAN POTASSIUM 50 MG TABLET PO SCH ×2 (09:00→16:58)
[2022-10-25] MEDS: METOPROLOL SUCCINATE XL 50 MG TAB.SR.24H PO SCH ×2 (09:00→16:58)
[2022-10-25] MEDS: CYANOCOBALAMIN 100 MCG TABLET PO SCH (09:00)
[2022-10-25] MEDS: APIXABAN 5 MG TABLET PO SCH ×2 (09:00→21:17)
[2022-10-25] MEDS: NUTRISOURCE FIBER 4 GM PACKET PO SCH ×2 (09:00→16:58)
[2022-10-25] MEDS: MAGNESIUM OXIDE 250 MG TABLET PO SCH (09:00)
[2022-10-25] MEDS: LIDOCAINE 5% PATCH TD SCH ×2 (09:00)
[2022-10-25 16:48] VITALS: BP 138/64
--- NOTE | 2022-10-25 19:55 | NUR ---
SHIFT NOTES": RECEIVED PATIENT ALERT AND ORIENTED SITTING IN CHAIR NO SIGNS OF DISTRESSED NOTED. PT BLOOD SUGAR IS 155 PATIENT GIVEN 2 UNITS OF INSULIN NO SIGNS OF DIABETIC REACTION NOTED. WILL ENDORSE TO HS NURSE PT DENIES PAIN THROUGHOUT SHIFT. WILL CONTINUE TO MONITOR.
[2022-10-25 20:50] VITALS: BP 123/54
[2022-10-25] MEDS: ATORVASTATIN 40 MG TABLET PO SCH (21:13)
--- NOTE | 2022-10-25 23:00 | NUR ---
1915- The patient is aox4. Vital signs stable. The patient has no IV access. The patient has no complains of pain or sob. Call light within reach, two side rails up, bed at lowest position, and bed alarm on, wheels lock. Will continue to monitor throughout the shift. 2300- The patient request for an extra pillow and blankets. Items are given to the patient. The patient has no complains of pain or sob. Will continue to monitor throughout the shift. 0200- The patient request for water. Item is given to the patient. The patient has no complains of pain or sob. Will continue to monitor throughout the shift.
[2022-10-26 04:42] VITALS: BP 106/47
[2022-10-26] MEDS: PANTOPRAZOLE SODIUM 40 MG TABLET.DR PO SCH (06:43)
[2022-10-26] MEDS: LEVOTHYROXINE SODIUM 50 MCG TABLET PO SCH (06:43)
[2022-10-26 07:31] VITALS: BP 119/38
[2022-10-26] MEDS: BLOOD SUGAR DIAGNOSTIC 1 EACH STRIP VI SCH ×3 (08:26→15:57)
[2022-10-26] MEDS: INSULIN REGULAR, HUMAN 300 UNIT/3 ML VIAL SQ PRN ×3 (08:27→16:17)
[2022-10-26] MEDS: METFORMIN HCL 500 MG TABLET PO SCH ×2 (08:32→17:07)
[2022-10-26] MEDS: SERTRALINE HCL 50 MG TABLET PO SCH (08:32)
[2022-10-26] MEDS: GABAPENTIN 300 MG CAPSULE PO SCH ×2 (08:32→16:20)
[2022-10-26] MEDS: LOSARTAN POTASSIUM 50 MG TABLET PO SCH ×2 (08:34→16:23)
[2022-10-26] MEDS: METOPROLOL SUCCINATE XL 50 MG TAB.SR.24H PO SCH ×2 (08:34→16:24)
[2022-10-26] MEDS: MAGNESIUM OXIDE 250 MG TABLET PO SCH (08:35)
[2022-10-26] MEDS: LIDOCAINE 5% PATCH TD SCH ×2 (08:36→09:00)
[2022-10-26] MEDS: DAPAGLIFLOZIN PROPANEDIOL 5 MG TABLET PO SCH (08:37)
[2022-10-26] MEDS: APIXABAN 5 MG TABLET PO SCH (08:43)
[2022-10-26] MEDS: AZATHIOPRINE 50 MG TABLET PO SCH (08:48)
[2022-10-26] MEDS: NUTRISOURCE FIBER 4 GM PACKET PO SCH ×2 (08:53→16:24)
[2022-10-26] MEDS: CYANOCOBALAMIN 100 MCG TABLET PO SCH (08:54)
[2022-10-26 14:54] VITALS: BP 104/46
[2022-10-26 16:24] VITALS: BP 104/46
--- NOTE | 2022-10-26 17:26 | NUR ---
Pt. in bed. AAOX4. NO sob at this time. Denies any pain and discomfort. Pt. is cooperative. Held BP meds at 5 oclock 104/46. Other routine meds given. Pt. is stable. Pt. is scheduled to be discharged today.
--- NOTE | 2022-10-26 19:00 | NUR ---
Patients discharged in stable condition. Instructions given. Pt. verbalized understanding. Belongings accounted for. Picked up by the son. Assisted pt to lobby with the son.
== END 2022-10-26 18:50 | disposition home health service (06) | DRG 57 ==
PROVIDERS: ADMIT Physical Medicine & Rehabilitation Pain Medicine; ATTEND Physical Medicine & Rehabilitation Pain Medicine
DX: I69.254 Hemiplegia and hemiparesis following other nontraumatic intracranial hemorrhage affecting left non-dominant side (principal); I69.298 Other sequelae of other nontraumatic intracranial hemorrhage; R29.6 Repeated falls; I48.91 Unspecified atrial fibrillation; I10 Essential (primary) hypertension; Z91.81 History of falling; E11.42 Type 2 diabetes mellitus with diabetic polyneuropathy; Z95.810 Presence of automatic (implantable) cardiac defibrillator; I95.1 Orthostatic hypotension; M21.372 Foot drop, left foot; D86.9 Sarcoidosis, unspecified; M51.14 Intervertebral disc disorders with radiculopathy, thoracic region; R05.3 Chronic cough; R51.9 Headache, unspecified; E03.9 Hypothyroidism, unspecified; G90.A Postural orthostatic tachycardia syndrome [POTS]; E78.5 Hyperlipidemia, unspecified; E83.42 Hypomagnesemia; Z87.01 Personal history of pneumonia (recurrent); M77.8 Other enthesopathies, not elsewhere classified; T45.1X5A Adverse effect of antineoplastic and immunosuppressive drugs, initial encounter; Y92.89 Other specified places as the place of occurrence of the external cause; Z79.01 Long term (current) use of anticoagulants; Z79.4 Long term (current) use of insulin
CPT/HCPCS: 36415; 73200; 83735; 84100; 85025; 97535-GO-CO; J1815; J3301; J3490; J7500

== ENCOUNTER 2023-01-15 15:56 | Inpatient (IN) | payer MEDICARE, OTHER ==
[~2023-01-15] VITALS: Ht 157.5 cm; Wt 69.4 kg
[~2023-01-15 15:56] MED LIST: ACET-73 PO; APIX5TAB PO; ATOR40TA PO; AZAT50TA18 PO; BISA10SU61 RC; CALC300T4 PO; CYAN100T44 PO; DAPA10TA PO; DEXT33GE7 PO; DOCU250C14 PO; GABA-532 PO; GLUC1KIT2 IJ; HYDR25TA86 PO; INSU200I SQ; INSU3INS6 SQ; IPRA0.2S6 NEB; LEVA0.6320 IH; LEVO50TA PO; LIDO30AD10 TD; LOSA50TA3 PO; MAGN400T8 PO; METF-442 PO; METO-357 PO; MICO200S3 VG; ONDA4TAB5 PO; PANT40TA2 PO; POLY15DR27 EACHEYE; POLY17PO4 PO; SERT50TA PO; TRAZ-252 PO
--- NOTE | 2023-01-18 19:30 | NUR ---
Received admission report from Kasi from [facility].
--- NOTE | 2023-01-18 20:11 | NUR ---
Patient arrived in the floor via ambulance accompanied by 2 EMT's. Awake, alert and no apparent distress. Transferred from [facility] to bed with 3 people assist. Patient able to move all extremities with left sided weakness noted due to old CVA. Made comfortable in bed. Oriented to staffs, room, call lights, TV remote, and bed control. Denies any pain/discomforts at this time. Offered bedpan per request, voided well. Able to perform self clean. Routine admission care done. Plan of card initiated.
[2023-01-18 20:53] VITALS: BP 120/51
[2023-01-18] MEDS: REMEDY ESSENTIAL ZINC PASTE 113 GM TOP SCH (21:15)
[2023-01-18] MEDS ORDERED: LEVA0.6320 IH (22:07)
[2023-01-18] MEDS ORDERED: NIFE-35 PO (22:07)
[2023-01-18] MEDS ORDERED: DEXA4TAB PO (22:07)
[2023-01-18] MEDS ORDERED: CLON0.1T PO (22:07)
[2023-01-18] MEDS ORDERED: SENN-291 PO (22:07)
[2023-01-18] MEDS ORDERED: PROP40TA7 PO (22:07)
[2023-01-18] MEDS ORDERED: HYDR-3972 PO (22:07)
[2023-01-18] MEDS ORDERED: DULO30CA2 PO (22:07)
[2023-01-18] MEDS ORDERED: IPRA0.2S48 NEB (22:07)
[2023-01-18] MEDS ORDERED: ASPI81TA31 PO (22:07)
[2023-01-18] MEDS ORDERED: MELA3TAB41 PO (22:07)
[2023-01-18] MEDS ORDERED: DICL100G31 TP (22:07)
[2023-01-18] MEDS ORDERED: DEXTROSE 50% 50 ML DISP.SYRIN IV PRN (23:30)
[2023-01-18] MEDS: INSULIN REGULAR, HUMAN 300 UNIT/3 ML VIAL SQ PRN (23:57)
[2023-01-19 05:57] VITALS: BP 120/57
--- NOTE | 2023-01-19 06:14 | NUR ---
Shift End Report: No significant event reported all night. Continue care as planned. VS stable.
[2023-01-19] MEDS: BLOOD SUGAR DIAGNOSTIC 1 EACH STRIP VI SCH ×4 (06:45→21:00)
[2023-01-19 07:30] VITALS: BP 103/53
[2023-01-19] MEDS ORDERED: MIRALAX 17 GM POWD.PACK PO PRN (07:30)
[2023-01-19] MEDS ORDERED: DEXTROSE 15 GM PO PRN (07:30)
[2023-01-19] MEDS ORDERED: BISACODYL 10 MG SUPP.RECT RC PRN (07:30)
[2023-01-19] MEDS ORDERED: HYDROCODONE/APAP 5-325MG TABLET PO PRN (07:30)
[2023-01-19] MEDS ORDERED: MELATONIN 3 MG TABLET PO PRN (07:30)
[2023-01-19] MEDS ORDERED: ACETAMINOPHEN ES 500 MG TABLET- SA PATIENTS-PAIN ONLY PO PRN (07:30)
[2023-01-19] MEDS ORDERED: LEVALBUTEROL HCL NEB 0.63 MG/3 ML NEBU IH PRN (07:30)
[2023-01-19] MEDS ORDERED: DOCUSATE SODIUM 250 MG CAPSULE PO PRN (07:30)
[2023-01-19] MEDS ORDERED: CLONIDINE HCL 0.1 MG TABLET PO PRN (07:30)
[2023-01-19] MEDS ORDERED: [UNRECOGNIZED DRUG - OTHER] PO PRN (07:30)
[2023-01-19] MEDS ORDERED: SENNOSIDES/DOCUSATE SODIUM TABLET PO PRN (07:30)
[2023-01-19] MEDS ORDERED: IPRATROPIUM BROMIDE 0.5 MG/2.5 ML NEBU NEB PRN (07:30)
[2023-01-19] MEDS ORDERED: DOCUSATE SODIUM 100 MG CAPSULE PO PRN (07:45)
[2023-01-19] MEDS ORDERED: ALBUTEROL SULFATE 1.25 MG/3 ML NEBU NEB PRN (07:45)
[2023-01-19] MEDS ORDERED: DAPA10TA PO (08:20)
[2023-01-19] MEDS ORDERED: LIDO1ADH82 TP (08:23)
[2023-01-19] MEDS ORDERED: VOLTAREN TP SCH (09:00)
[2023-01-19] MEDS ORDERED: Dapagliflozin Propanediol (Farxiga) 10 MG) PO SCH (09:00)
[2023-01-19] MEDS ORDERED: MAGNESIUM OXIDE 400 MG TABLET PO SCH (09:00)
[2023-01-19] MEDS: ASPIRIN 81 MG TAB.CHEW PO SCH (09:10)
[2023-01-19] MEDS: PROPRANOLOL HCL 40 MG TABLET PO SCH ×2 (09:10→21:00)
[2023-01-19] MEDS: DEXAMETHASONE 4 MG TABLET PO SCH (09:10)
[2023-01-19] MEDS: LOSARTAN POTASSIUM 50 MG TABLET PO SCH ×2 (09:10→21:00)
[2023-01-19] MEDS: NIFEdipine XL 30 MG TABSR PO SCH ×2 (09:11→16:42)
[2023-01-19] MEDS: AZATHIOPRINE 50 MG TABLET PO SCH (09:11)
[2023-01-19] MEDS: REMEDY ESSENTIAL ZINC PASTE 113 GM TOP SCH ×2 (09:12→21:00)
[2023-01-19] MEDS: PANTOPRAZOLE SODIUM 40 MG TABLET.DR PO SCH (09:15)
[2023-01-19] MEDS ORDERED: METFORMIN HCL 500 MG TABLET PO SCH (10:30)
[2023-01-19] MEDS: LEVOTHYROXINE SODIUM 50 MCG TABLET PO SCH (11:41)
[2023-01-19] MEDS: INSULIN REGULAR, HUMAN 300 UNIT/3 ML VIAL SQ PRN ×3 (11:45→23:23)
[2023-01-19 16:00] VITALS: BP 119/47
[2023-01-19] MEDS: MAGNESIUM OXIDE 250 MG TABLET PO SCH (16:47)
--- NOTE | 2023-01-19 18:35 | NUR ---
Patient alert and oriented. Able to verbalize her needs and follow directions. Patient denies pain, no s/s of hypo/hyperglycemia or hypo/HTN noted on FS for BS checks AC/HS with SS insulin coverage. Eating and drinking well. VSS during shift. Assisted to the restroom as needed; kept clean and comfortable. Needs attended well and met during shift. No SILVIA noted. Endorsed to relieving NOC RN.
[2023-01-19 20:36] VITALS: BP 116/49
[2023-01-19] MEDS: INSULIN GLARGINE,HUM 300 UNITS/3 ML CARTRIDGE SQ SCH (21:00)
[2023-01-19] MEDS: ATORVASTATIN 40 MG TABLET PO SCH (21:00)
[2023-01-19] MEDS: DULOXETINE 30 MG CAPSULE.DR PO SCH (21:00)
[2023-01-20 04:46] VITALS: BP 120/84
[2023-01-20] MEDS: BLOOD SUGAR DIAGNOSTIC 1 EACH STRIP VI SCH ×4 (05:29→20:51)
[2023-01-20] MEDS: PANTOPRAZOLE SODIUM 40 MG TABLET.DR PO SCH (06:24)
[2023-01-20] MEDS: LEVOTHYROXINE SODIUM 50 MCG TABLET PO SCH (06:24)
[2023-01-20] MEDS: INSULIN REGULAR, HUMAN 300 UNIT/3 ML VIAL SQ PRN ×4 (07:31→20:42)
[2023-01-20 07:58] VITALS: BP 140/60
[2023-01-20 08:14] LABS: CREATININE 0.7 mg/dL (0.6-1.3); MAGNESIUM 1.6 mg/dL (1.8-2.4); POTASSIUM 3.9 mmol/L (3.5-5.1)
[2023-01-20] MEDS: NIFEdipine XL 30 MG TABSR PO SCH ×2 (08:41→16:38)
[2023-01-20] MEDS: ASPIRIN 81 MG TAB.CHEW PO SCH (08:41)
[2023-01-20] MEDS: PROPRANOLOL HCL 40 MG TABLET PO SCH ×2 (08:41→20:49)
[2023-01-20] MEDS: LOSARTAN POTASSIUM 50 MG TABLET PO SCH ×2 (08:41→20:44)
[2023-01-20] MEDS: AZATHIOPRINE 50 MG TABLET PO SCH (08:41)
[2023-01-20] MEDS: DEXAMETHASONE 4 MG TABLET PO SCH (08:41)
[2023-01-20] MEDS: REMEDY ESSENTIAL ZINC PASTE 113 GM TOP SCH ×2 (08:53→20:50)
[2023-01-20] MEDS: DAPAGLIFLOZIN PROPANEDIOL 5 MG TABLET PO SCH (09:29)
[2023-01-20] MEDS: LIDOCAINE 5% PATCH TD SCH ×2 (09:29→09:30)
--- NOTE | 2023-01-20 09:56 | NUR ---
0730-Rec'd in bed, asleep, no respiratory distress noted. On R/A and richard. well, denies pain. No s/s of hypo/HTN or hypo/hyperglycemia, oral fluids offered and taken well. Encouraged to use call light for help every time needed with good understanding. 0900-Scheduled medications administered with no ASE noted. Patient continues eating her breakfast, no swallowing problems observed, denies GI discomfort.
[2023-01-20] MEDS: MAGNESIUM OXIDE 250 MG TABLET PO SCH (10:22)
[2023-01-20 16:00] VITALS: BP 128/63
--- NOTE | 2023-01-20 16:20 | NUR ---
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 FINDINGS/LAB RESULTS RELAYED TO DR. MCCOY WITH ORDERS GIVEN AND CARRIED OUT.
[2023-01-20] MEDS: METFORMIN HCL 500 MG TABLET PO SCH (17:07)
[2023-01-20 20:00] VITALS: BP 101/70
[2023-01-20] MEDS: MUPIROCIN 2% OINT 22 GM TUBE NS SCH (20:35)
[2023-01-20] MEDS: DULOXETINE 30 MG CAPSULE.DR PO SCH (20:36)
[2023-01-20] MEDS: ACETAMINOPHEN 325 MG TABLET PO PRN (20:36)
[2023-01-20] MEDS: ATORVASTATIN 40 MG TABLET PO SCH (20:36)
[2023-01-20] MEDS: INSULIN GLARGINE,HUM 300 UNITS/3 ML CARTRIDGE SQ SCH (20:38)
[2023-01-21 04:00] VITALS: BP 118/50
--- NOTE | 2023-01-21 05:54 | NUR ---
Patient rested well in between care; assisted to bathroom; c/o headache and medicated with tylenol; accucheck as charted; call light within reach; safety maintained; continue to monitor; continue plan of care.
[2023-01-21] MEDS: LEVOTHYROXINE SODIUM 50 MCG TABLET PO SCH (06:13)
[2023-01-21] MEDS: PANTOPRAZOLE SODIUM 40 MG TABLET.DR PO SCH (06:13)
[2023-01-21] MEDS: BLOOD SUGAR DIAGNOSTIC 1 EACH STRIP VI SCH ×4 (06:15→20:23)
[2023-01-21 06:52] LABS: HEMATOCRIT 38.8 % (31.2-41.9); MEAN CORPUSCULAR VOLUME 92.2 fL (75.5-95.3); PLATELET COUNT (AUTO) 223 K/uL (179-408)
[2023-01-21 07:20] LABS: BILIRUBIN,TOTAL 0.6 mg/dL (0.2-1.0); CREATININE 0.8 mg/dL (0.6-1.3); MAGNESIUM 1.7 mg/dL (1.8-2.4); PHOSPHOROUS 4.9 mg/dL (2.5-4.9); POTASSIUM 4.2 mmol/L (3.5-5.1); TOTAL PROTEIN, SERUM 6.6 g/dL (6.4-8.2)
[2023-01-21] MEDS: LIDOCAINE 5% PATCH TD SCH ×2 (09:09→09:14)
[2023-01-21] MEDS: NIFEdipine XL 30 MG TABSR PO SCH ×2 (09:10→16:49)
[2023-01-21] MEDS: METFORMIN HCL 500 MG TABLET PO SCH ×2 (09:11→16:48)
[2023-01-21] MEDS: PROPRANOLOL HCL 40 MG TABLET PO SCH ×2 (09:11→20:32)
[2023-01-21] MEDS: LOSARTAN POTASSIUM 50 MG TABLET PO SCH ×2 (09:12→20:32)
[2023-01-21] MEDS: DEXAMETHASONE 0.5 MG TABLET PO SCH (09:12)
[2023-01-21] MEDS: ASPIRIN 81 MG TAB.CHEW PO SCH (09:12)
[2023-01-21] MEDS: MAGNESIUM OXIDE 250 MG TABLET PO SCH (09:12)
[2023-01-21] MEDS: DAPAGLIFLOZIN PROPANEDIOL 5 MG TABLET PO SCH (09:13)
[2023-01-21] MEDS: AZATHIOPRINE 50 MG TABLET PO SCH (09:13)
[2023-01-21] MEDS: REMEDY ESSENTIAL ZINC PASTE 113 GM TOP SCH ×2 (09:14→20:37)
[2023-01-21] MEDS: MUPIROCIN 2% OINT 22 GM TUBE NS SCH ×2 (09:44→20:37)
[2023-01-21] MEDS ORDERED: MAGNESIUM OXIDE 400 MG TABLET PO ONE ×2 (10:00)
--- NOTE | 2023-01-21 11:25 | NUR ---
INDIVIDUALIZED PLAN OF CARE
[2023-01-21 12:00] VITALS: BP 116/60
[2023-01-21] MEDS: INSULIN REGULAR, HUMAN 300 UNIT/3 ML VIAL SQ PRN ×3 (12:26→20:27)
--- NOTE | 2023-01-21 15:20 | NUR ---
INTERDISCIPLINARY TEAM CONFERENCE
[2023-01-21 16:00] VITALS: BP 103/51
[2023-01-21] MEDS ORDERED: LIDOCAINE 5% PATCH TD SCH (16:30)
[2023-01-21] MEDS: GLUCERNA SHAKE 237 ML CAN PO SCH (17:01)
--- NOTE | 2023-01-21 19:03 | NUR ---
Assisted with ADLs during shift. Patient alert and oriented; verbalizes needs and follows directions, denies pain or discomfort. OOB to her rehab PT/OT as scheduled. Patient able to actively participate in therapy. Fall precautions observed. A clutter free environment provided. Routine rounds and frequent visual checks done. Patient eating and drinking well, no swallowing problems noted. No s/s of hypo/htn. FS for BS checks ACHS with SS coverage as ordered by MD based on BS results. No s/s of hypo/hypergycemia noted. No SILVIA noted, ALL needs anticipated and met.
--- NOTE | 2023-01-21 19:43 | NUR ---
NSG: Received Patient lying in bed. patient is alert and oriented x4. Able to verbalize her needs and follow directions. Denies pain, no sob noted.call light w/in reach. kept clean and comfortable.
[2023-01-21 20:00] VITALS: BP_SYST 103; BP_SYST 113; BP_DIAS 49; BP_DIAS 61
[2023-01-21] MEDS: INSULIN GLARGINE,HUM 300 UNITS/3 ML CARTRIDGE SQ SCH (20:28)
[2023-01-21] MEDS: ATORVASTATIN 40 MG TABLET PO SCH (20:31)
[2023-01-21] MEDS: DULOXETINE 30 MG CAPSULE.DR PO SCH (20:32)
[2023-01-22 04:00] VITALS: BP 98/48
--- NOTE | 2023-01-22 06:02 | NUR ---
NSG: Remain calm and cooperative with meds and care. No significant event reported all night. Continue care as planned. VS stable.
[2023-01-22] MEDS: PANTOPRAZOLE SODIUM 40 MG TABLET.DR PO SCH (06:07)
[2023-01-22] MEDS: LEVOTHYROXINE SODIUM 50 MCG TABLET PO SCH (06:07)
[2023-01-22] MEDS: BLOOD SUGAR DIAGNOSTIC 1 EACH STRIP VI SCH ×4 (06:21→21:34)
--- NOTE | 2023-01-22 06:23 | NUR ---
blood sugar 77mg/dl. offered orange juice but patient refused.
[2023-01-22 06:43] VITALS: BP 100/59
[2023-01-22] MEDS: GLUCERNA SHAKE 237 ML CAN PO SCH ×2 (08:36→17:00)
[2023-01-22] MEDS: MUPIROCIN 2% OINT 22 GM TUBE NS SCH ×2 (09:00→21:46)
[2023-01-22] MEDS: METFORMIN HCL 500 MG TABLET PO SCH ×2 (09:33→18:36)
[2023-01-22] MEDS: ASPIRIN 81 MG TAB.CHEW PO SCH (09:33)
[2023-01-22] MEDS: PROPRANOLOL HCL 40 MG TABLET PO SCH ×2 (09:38→21:49)
[2023-01-22] MEDS: LOSARTAN POTASSIUM 50 MG TABLET PO SCH ×2 (09:40→21:47)
[2023-01-22] MEDS: NIFEdipine XL 30 MG TABSR PO SCH ×2 (09:40→17:00)
[2023-01-22] MEDS: LIDOCAINE 5% PATCH TD SCH ×2 (09:41→09:42)
[2023-01-22] MEDS: DEXAMETHASONE 0.5 MG TABLET PO SCH (09:48)
[2023-01-22] MEDS: AZATHIOPRINE 50 MG TABLET PO SCH (09:48)
[2023-01-22] MEDS: REMEDY ESSENTIAL ZINC PASTE 113 GM TOP SCH ×2 (09:48→21:34)
[2023-01-22] MEDS: MAGNESIUM OXIDE 250 MG TABLET PO SCH (09:49)
[2023-01-22] MEDS: DAPAGLIFLOZIN PROPANEDIOL 5 MG TABLET PO SCH (09:50)
[2023-01-22] MEDS: INSULIN REGULAR, HUMAN 300 UNIT/3 ML VIAL SQ PRN (12:45)
[2023-01-22 15:57] VITALS: BP 94/35
[2023-01-22] MEDS ORDERED: BISACODYL 5 MG TABLET.DR PO PRN (16:45)
--- NOTE | 2023-01-22 19:55 | NUR ---
Pt stable Dulcolax given for constipation/\.
[2023-01-22 20:42] VITALS: BP 122/53
[2023-01-22] MEDS: ATORVASTATIN 40 MG TABLET PO SCH (21:49)
[2023-01-22] MEDS: DULOXETINE 30 MG CAPSULE.DR PO SCH (21:52)
[2023-01-23] MEDS: INSULIN GLARGINE,HUM 300 UNITS/3 ML CARTRIDGE SQ SCH ×2 (00:32→21:40)
[2023-01-23 04:20] VITALS: BP 111/54
--- NOTE | 2023-01-23 07:00 | NUR ---
NO ACUTE DISTRESS NOTED.IN [employer]. NEEDS ATTENDED TO.
[2023-01-23] MEDS: LEVOTHYROXINE SODIUM 50 MCG TABLET PO SCH (07:09)
[2023-01-23] MEDS: PANTOPRAZOLE SODIUM 40 MG TABLET.DR PO SCH (07:09)
[2023-01-23] MEDS: BLOOD SUGAR DIAGNOSTIC 1 EACH STRIP VI SCH ×4 (07:28→20:24)
[2023-01-23 07:49] VITALS: BP 117/45
[2023-01-23] MEDS: NIFEdipine XL 30 MG TABSR PO SCH ×2 (09:00→16:42)
[2023-01-23] MEDS: PROPRANOLOL HCL 40 MG TABLET PO SCH ×2 (09:00→21:00)
[2023-01-23] MEDS: LOSARTAN POTASSIUM 50 MG TABLET PO SCH ×2 (09:00→21:00)
[2023-01-23] MEDS: ASPIRIN 81 MG TAB.CHEW PO SCH (09:28)
[2023-01-23] MEDS: METFORMIN HCL 500 MG TABLET PO SCH ×2 (09:28→16:42)
[2023-01-23] MEDS: AZATHIOPRINE 50 MG TABLET PO SCH (09:31)
[2023-01-23] MEDS: DEXAMETHASONE 0.5 MG TABLET PO SCH (09:31)
[2023-01-23] MEDS: MAGNESIUM OXIDE 250 MG TABLET PO SCH (09:33)
[2023-01-23] MEDS: REMEDY ESSENTIAL ZINC PASTE 113 GM TOP SCH ×2 (09:34→20:25)
[2023-01-23] MEDS: LIDOCAINE 5% PATCH TD SCH ×2 (09:34)
[2023-01-23] MEDS: GLUCERNA SHAKE 237 ML CAN PO SCH ×2 (09:35→16:43)
[2023-01-23] MEDS: MUPIROCIN 2% OINT 22 GM TUBE NS SCH ×2 (09:35→21:39)
[2023-01-23] MEDS: DAPAGLIFLOZIN PROPANEDIOL 5 MG TABLET PO SCH (09:47)
[2023-01-23] MEDS: INSULIN REGULAR, HUMAN 300 UNIT/3 ML VIAL SQ PRN (13:05)
[2023-01-23 15:55] VITALS: BP 108/48
[2023-01-23 20:00] VITALS: BP 141/61
--- NOTE | 2023-01-23 20:15 | NUR ---
RECEIVED REPORT FROM [facility] SHIFT RN. PATIENT IS ALERT AND ORIENTED X4. VITAL SIGNS STABLE. PATIENT TOLERATES PO MEDICATIONS AND DIET WELL. PATIENT HAD COMPLIANT OF PAIN. RN GAVE PAIN MEDICATIONS ORDERED. PATIENT EXPRESSED RELIEF. PATIENT PARTICIPATES WITH PHYSICAL AND OCCUPATIONAL THERAPY. ALL NEEDS MET AT THIS TIME. NO ACUTE DISTRESS. NO SIGNS AND SYMPTOMS OF HYPOGLYCEMIA. CALL LIGHT WITHIN REACH. FALL PRECAUTIONS IN PLACE. RN ENDORSED CONTINUATION OF CARE TO [facility] SHIFT RN FOR THE CONTINUATION OF CARE.
[2023-01-23] MEDS: ATORVASTATIN 40 MG TABLET PO SCH (20:25)
[2023-01-23] MEDS: DULOXETINE 30 MG CAPSULE.DR PO SCH (20:25)
[2023-01-24 04:00] VITALS: BP 103/47
[2023-01-24] MEDS: PANTOPRAZOLE SODIUM 40 MG TABLET.DR PO SCH (06:18)
[2023-01-24] MEDS: LEVOTHYROXINE SODIUM 50 MCG TABLET PO SCH (06:18)
[2023-01-24] MEDS: BLOOD SUGAR DIAGNOSTIC 1 EACH STRIP VI SCH ×4 (07:24→20:26)
[2023-01-24 07:50] VITALS: BP 112/48
[2023-01-24] MEDS: LOSARTAN POTASSIUM 50 MG TABLET PO SCH ×2 (09:00→20:26)
[2023-01-24] MEDS: LIDOCAINE 5% PATCH TD SCH ×2 (09:09)
[2023-01-24] MEDS: MAGNESIUM OXIDE 250 MG TABLET PO SCH (09:09)
[2023-01-24] MEDS: DAPAGLIFLOZIN PROPANEDIOL 5 MG TABLET PO SCH (09:10)
[2023-01-24] MEDS: AZATHIOPRINE 50 MG TABLET PO SCH (09:11)
[2023-01-24] MEDS: METFORMIN HCL 500 MG TABLET PO SCH ×2 (09:11→16:55)
[2023-01-24] MEDS: PROPRANOLOL HCL 40 MG TABLET PO SCH ×2 (09:11→20:26)
[2023-01-24] MEDS: ASPIRIN 81 MG TAB.CHEW PO SCH (09:12)
[2023-01-24] MEDS: NIFEdipine XL 30 MG TABSR PO SCH ×2 (09:13→16:55)
[2023-01-24] MEDS: MUPIROCIN 2% OINT 22 GM TUBE NS SCH ×2 (09:19→20:32)
[2023-01-24] MEDS: REMEDY ESSENTIAL ZINC PASTE 113 GM TOP SCH ×2 (09:20→20:25)
[2023-01-24] MEDS: GLUCERNA SHAKE 237 ML CAN PO SCH ×2 (09:20→16:56)
--- NOTE | 2023-01-24 13:00 | NUR ---
RECEIVED REPORT FROM NOC SHIFT RN. PATIENT IS ALERT AND ORIENTED X4. VITAL SIGNS STABLE. PATIENT TOLERATES PO MEDICATIONS AND DIET WELL. PATIENT DENIES PAIN. PATIENT PARTICIPATES WITH PHYSICAL AND OCCUPATIONAL THERAPY PER SCHEDULE. ALL NEEDS MET AT THIS TIME. CALL LIGHT WITHIN REACH. FALL PRECAUTIONS IN PLACE. RN ENDORSED CONTINUATION OF CARE TO YE [facility] FOR THE CONTINUATION OF CARE.
[2023-01-24 16:27] VITALS: BP 127/67
[2023-01-24] MEDS: INSULIN REGULAR, HUMAN 300 UNIT/3 ML VIAL SQ PRN (16:51)
--- NOTE | 2023-01-24 17:29 | NUR ---
Pt. has been stable during the shift. Compliance with the care given. Assist the pt. to bathroom and safely transfer the pt. to bed. No s/s of hyper/hypoglycemia noted. All need attended and met. No c/o pain. Call light within reach. Will keep monitoring the patient.
[2023-01-24] MEDS: INSULIN GLARGINE,HUM 300 UNITS/3 ML CARTRIDGE SQ SCH (20:24)
[2023-01-24] MEDS: DULOXETINE 30 MG CAPSULE.DR PO SCH (20:26)
[2023-01-24] MEDS: ATORVASTATIN 40 MG TABLET PO SCH (20:26)
--- NOTE | 2023-01-24 20:38 | NUR ---
assited patient to the bathroom via wheelchair ,patient voided , z guard applied to bilateral groin area . back to bed .
[2023-01-25] MEDS: LEVOTHYROXINE SODIUM 50 MCG TABLET PO SCH (06:17)
[2023-01-25] MEDS: PANTOPRAZOLE SODIUM 40 MG TABLET.DR PO SCH (06:17)
[2023-01-25] MEDS: BLOOD SUGAR DIAGNOSTIC 1 EACH STRIP VI SCH ×4 (06:35→20:37)
[2023-01-25 08:00] VITALS: BP 93/57
[2023-01-25] MEDS: ASPIRIN 81 MG TAB.CHEW PO SCH (09:05)
[2023-01-25] MEDS: PROPRANOLOL HCL 40 MG TABLET PO SCH ×2 (09:05→21:24)
[2023-01-25] MEDS: METFORMIN HCL 500 MG TABLET PO SCH ×2 (09:05→17:03)
[2023-01-25] MEDS: NIFEdipine XL 30 MG TABSR PO SCH ×2 (09:05→17:03)
[2023-01-25] MEDS: LOSARTAN POTASSIUM 50 MG TABLET PO SCH ×2 (09:06→21:25)
[2023-01-25] MEDS: GLUCERNA SHAKE 237 ML CAN PO SCH ×2 (09:06→17:03)
[2023-01-25] MEDS: MUPIROCIN 2% OINT 22 GM TUBE NS SCH ×2 (09:06→21:27)
[2023-01-25] MEDS: INSULIN REGULAR, HUMAN 300 UNIT/3 ML VIAL SQ PRN ×2 (09:09→11:31)
[2023-01-25] MEDS: MAGNESIUM OXIDE 250 MG TABLET PO SCH (09:10)
[2023-01-25] MEDS: DAPAGLIFLOZIN PROPANEDIOL 5 MG TABLET PO SCH (09:10)
[2023-01-25] MEDS: AZATHIOPRINE 50 MG TABLET PO SCH (09:10)
[2023-01-25] MEDS: LIDOCAINE 5% PATCH TD SCH ×2 (09:11→09:26)
[2023-01-25] MEDS: REMEDY ESSENTIAL ZINC PASTE 113 GM TOP SCH ×2 (09:26→21:26)
[2023-01-25 16:00] VITALS: BP 122/66
[2023-01-25 20:00] VITALS: BP 139/67
[2023-01-25] MEDS: INSULIN GLARGINE,HUM 300 UNITS/3 ML CARTRIDGE SQ SCH (21:20)
[2023-01-25] MEDS: DULOXETINE 30 MG CAPSULE.DR PO SCH (21:23)
[2023-01-25] MEDS: ATORVASTATIN 40 MG TABLET PO SCH (21:25)
[2023-01-25] MEDS: ACETAMINOPHEN 325 MG TABLET PO PRN (21:26)
[2023-01-26 04:00] VITALS: BP 106/54
[2023-01-26] MEDS: BLOOD SUGAR DIAGNOSTIC 1 EACH STRIP VI SCH ×4 (06:26→21:14)
[2023-01-26] MEDS: PANTOPRAZOLE SODIUM 40 MG TABLET.DR PO SCH (06:49)
[2023-01-26] MEDS: LEVOTHYROXINE SODIUM 50 MCG TABLET PO SCH (06:49)
--- NOTE | 2023-01-26 07:49 | NUR ---
Rec'd patient in bed , awake, A/Ox4, able to verbalize her needs and follow directions, denies pain at this time. Patient on R/A, no respiratory distress noted. Skin W/D to the touch, afebrile; no s/s of hypo/hyperglycemia or hypo/HTN noted. Safety measure in place and call light within reach. Will continue to monitor.
[2023-01-26 08:00] VITALS: BP 124/61
[2023-01-26] MEDS: GLUCERNA SHAKE 237 ML CAN PO SCH ×2 (08:03→17:06)
[2023-01-26] MEDS: LIDOCAINE 5% PATCH TD SCH ×2 (08:13→08:18)
[2023-01-26] MEDS: NIFEdipine XL 30 MG TABSR PO SCH ×2 (08:15→17:06)
[2023-01-26] MEDS: PROPRANOLOL HCL 40 MG TABLET PO SCH ×2 (08:15→20:27)
[2023-01-26] MEDS: ASPIRIN 81 MG TAB.CHEW PO SCH (08:16)
[2023-01-26] MEDS: LOSARTAN POTASSIUM 50 MG TABLET PO SCH ×2 (08:16→20:26)
[2023-01-26] MEDS: METFORMIN HCL 500 MG TABLET PO SCH ×2 (08:16→17:06)
[2023-01-26] MEDS: MAGNESIUM OXIDE 250 MG TABLET PO SCH (08:17)
[2023-01-26] MEDS: AZATHIOPRINE 50 MG TABLET PO SCH (08:18)
[2023-01-26] MEDS: DAPAGLIFLOZIN PROPANEDIOL 5 MG TABLET PO SCH (08:18)
[2023-01-26] MEDS: REMEDY ESSENTIAL ZINC PASTE 113 GM TOP SCH ×2 (08:19→20:27)
[2023-01-26] MEDS: MUPIROCIN 2% OINT 22 GM TUBE NS SCH ×2 (09:02→20:24)
[2023-01-26] MEDS ORDERED: TIZANIDINE HCL 4 MG TABLET PO PRN (12:00)
[2023-01-26 16:00] VITALS: BP 108/51
--- NOTE | 2023-01-26 19:19 | NUR ---
Patient continues under rehab for PT/OT skilled services and tolerating well. Patient able to actively participate in therapy. Fall precautions observed; safety precaution reminders provided. assisted patient with her ADLs/personal care/hygiene through out the shift. No SILVIA noted. Medications administered during shift as ordered and scheduled by MD, no ASE noted. Patient eating and drinking well. No s/s of hypo/hyperglycemia noted.
[2023-01-26 20:00] VITALS: BP 152/80
[2023-01-26] MEDS: DULOXETINE 30 MG CAPSULE.DR PO SCH (20:26)
[2023-01-26] MEDS: ATORVASTATIN 40 MG TABLET PO SCH (20:27)
[2023-01-26] MEDS: INSULIN GLARGINE,HUM 300 UNITS/3 ML CARTRIDGE SQ SCH (21:13)
[2023-01-27 04:00] VITALS: BP 136/64
[2023-01-27] MEDS: PANTOPRAZOLE SODIUM 40 MG TABLET.DR PO SCH (06:33)
[2023-01-27] MEDS: LEVOTHYROXINE SODIUM 50 MCG TABLET PO SCH (06:33)
[2023-01-27] MEDS: BLOOD SUGAR DIAGNOSTIC 1 EACH STRIP VI SCH ×4 (06:42→21:27)
[2023-01-27 08:00] VITALS: BP 122/62
--- NOTE | 2023-01-27 08:00 | NUR ---
Received patient lying in bed conscious and coherent, no signs of distress. No complain, on room air saturating at 97%.
--- NOTE | 2023-01-27 09:00 | NUR ---
Patient was seen by physical therapist for rehab. Medication given and recorded Assisted patient to bathroom, needs attended.
[2023-01-27] MEDS: LIDOCAINE 5% PATCH TD SCH ×2 (09:01→10:36)
[2023-01-27] MEDS: NIFEdipine XL 30 MG TABSR PO SCH ×2 (09:02→17:40)
[2023-01-27] MEDS: LOSARTAN POTASSIUM 50 MG TABLET PO SCH ×2 (09:02→21:24)
[2023-01-27] MEDS: ASPIRIN 81 MG TAB.CHEW PO SCH (09:03)
[2023-01-27] MEDS: PROPRANOLOL HCL 40 MG TABLET PO SCH ×2 (09:03→21:25)
[2023-01-27] MEDS: METFORMIN HCL 500 MG TABLET PO SCH ×2 (09:03→17:40)
[2023-01-27] MEDS: REMEDY ESSENTIAL ZINC PASTE 113 GM TOP SCH ×2 (09:04→21:26)
[2023-01-27] MEDS: MAGNESIUM OXIDE 250 MG TABLET PO SCH (09:05)
[2023-01-27] MEDS: AZATHIOPRINE 50 MG TABLET PO SCH (09:06)
[2023-01-27] MEDS: DAPAGLIFLOZIN PROPANEDIOL 5 MG TABLET PO SCH (09:06)
[2023-01-27] MEDS: MUPIROCIN 2% OINT 22 GM TUBE NS SCH (09:09)
[2023-01-27] MEDS: GLUCERNA SHAKE 237 ML CAN PO SCH ×2 (09:10→17:41)
--- NOTE | 2023-01-27 14:00 | NUR ---
Seen patient sitting in her wheel chair comfortable, no acute change since morning. Assisted patient to bathroom,voided freely. Attended
[2023-01-27 16:00] VITALS: BP 129/73
[2023-01-27 20:00] VITALS: BP 113/68
[2023-01-27] MEDS: ATORVASTATIN 40 MG TABLET PO SCH (21:24)
[2023-01-27] MEDS: DULOXETINE 30 MG CAPSULE.DR PO SCH (21:24)
[2023-01-27] MEDS: INSULIN GLARGINE,HUM 300 UNITS/3 ML CARTRIDGE SQ SCH (21:31)
--- NOTE | 2023-01-28 04:59 | NUR ---
AAOx4 Admitted for CVA with left sided weakness. Fall precautions maintained. Siderails up for safety. OOB in wheelchair. Voiding in the BR without difficulty. Denies any pain nor any discomfort. VSS
[2023-01-28 05:45] VITALS: BP 120/53
[2023-01-28] MEDS: LEVOTHYROXINE SODIUM 50 MCG TABLET PO SCH (06:08)
[2023-01-28] MEDS: PANTOPRAZOLE SODIUM 40 MG TABLET.DR PO SCH (06:08)
[2023-01-28] MEDS: BLOOD SUGAR DIAGNOSTIC 1 EACH STRIP VI SCH ×4 (06:34→21:20)
[2023-01-28 08:10] VITALS: BP 132/60
[2023-01-28] MEDS: PROPRANOLOL HCL 40 MG TABLET PO SCH ×2 (08:19→21:12)
[2023-01-28] MEDS: ASPIRIN 81 MG TAB.CHEW PO SCH (08:19)
[2023-01-28] MEDS: LIDOCAINE 5% PATCH TD SCH ×2 (08:19)
[2023-01-28] MEDS: LOSARTAN POTASSIUM 50 MG TABLET PO SCH ×2 (08:19→21:12)
[2023-01-28] MEDS: METFORMIN HCL 500 MG TABLET PO SCH ×2 (08:19→17:24)
[2023-01-28] MEDS: MAGNESIUM OXIDE 250 MG TABLET PO SCH (08:20)
[2023-01-28] MEDS: AZATHIOPRINE 50 MG TABLET PO SCH (08:20)
[2023-01-28] MEDS: DAPAGLIFLOZIN PROPANEDIOL 5 MG TABLET PO SCH (08:20)
[2023-01-28] MEDS: REMEDY ESSENTIAL ZINC PASTE 113 GM TOP SCH ×2 (08:21→21:12)
[2023-01-28] MEDS: GLUCERNA SHAKE 237 ML CAN PO SCH ×2 (08:21→17:24)
--- NOTE | 2023-01-28 11:25 | NUR ---
0730-REC'D IN BED, ASLEEP, ON R/A, NO RESPIRATORY DISTRESS NOTED. PATIENT ABLE TO WAKE UP ON VERBAL COMMANDS, DENIES PAIN. BED SIDE TABLE IN PLACE WITH NEEDED ITEMS AT REACH, CALL LIGHT AT REACH, ENCOURAGED TO USE IT EVERY TIME HELP IS NEEDED. 0900-PATIENT EATING BREAKFAST, SCHEDULED MEDICATION ADMINISTERED ORDERED; ORAL FLUIDS TAKEN WELL. 1000-OUT TO REHAB FOR HER THERAPY SESSION SCHEDULED. 11:20-PATIENT HAD A SHOWER BY OT PERSONNEL.
[2023-01-28] MEDS: INSULIN REGULAR, HUMAN 300 UNIT/3 ML VIAL SQ PRN ×2 (11:51→16:47)
--- NOTE | 2023-01-28 13:04 | NUR ---
INTERDISCIPLINARY TEAM CONFERENCE
--- NOTE | 2023-01-28 13:59 | NUR ---
INTERDISCIPLINARY TEAM CONFERENCE
--- NOTE | 2023-01-28 14:01 | NUR ---
INTERDISCIPLINARY TEAM CONFERENCE
[2023-01-28 16:20] VITALS: BP 143/75
--- NOTE | 2023-01-28 19:19 | NUR ---
PATIENT IN STABLE CONDITIONS DURING SHIFT; CONTINUES UNDER REHAB FOR PT/OT SKILLED SERVICES ORDERED, TOLERATING THERAPY WELL AND ACTIVELY ABLE TO PARTICIPATE IN THERAPY. NO S/S OF HYPO/HTN OR HYPO/HYPERGLYCEMIA NOTED. MEDICATIONS ADMINISTERED ORDERED THROUGH OUT THE SHIFT WITH NO ASE NOTED. PATIENT EATING AND DRINKING WELL, DENIES GI DISCOMFORT. BRP, ASSISTED TO THE RESTROOM NEEDED. PATIENT REC'D A SHOWER BY OT PERSONNEL. ALL NEEDS ATTENDED WELL AND MET.
[2023-01-28 20:52] VITALS: BP 139/69
[2023-01-28] MEDS: ATORVASTATIN 40 MG TABLET PO SCH (21:11)
[2023-01-28] MEDS: DULOXETINE 30 MG CAPSULE.DR PO SCH (21:12)
[2023-01-28] MEDS: INSULIN GLARGINE,HUM 300 UNITS/3 ML CARTRIDGE SQ SCH (21:19)
[2023-01-29 04:45] VITALS: BP 132/69
[2023-01-29] MEDS: LEVOTHYROXINE SODIUM 50 MCG TABLET PO SCH (06:12)
[2023-01-29] MEDS: PANTOPRAZOLE SODIUM 40 MG TABLET.DR PO SCH (06:12)
--- NOTE | 2023-01-29 06:28 | NUR ---
Quiet night. AAOx4 All needs attended. VSS No acute distress noted. Fall precautions maintained. Call santos within reach. Denies any pain nor any discomfort.Continent of bowel and bladder. Will monitor patient.
[2023-01-29] MEDS: BLOOD SUGAR DIAGNOSTIC 1 EACH STRIP VI SCH ×4 (06:34→20:51)
[2023-01-29 06:54] LABS: HEMATOCRIT 37.6 % (31.2-41.9); MEAN CORPUSCULAR HEMOGLOBIN 31.2 uug (24.7-32.8); MEAN CORPUSCULAR VOLUME 93.5 fL (75.5-95.3); PLATELET COUNT (AUTO) 224 K/uL (179-408)
[2023-01-29 07:44] LABS: BILIRUBIN,TOTAL 0.5 mg/dL (0.2-1.0); CREATININE 0.8 mg/dL (0.6-1.3); MAGNESIUM 1.8 mg/dL (1.8-2.4); PHOSPHOROUS 4.3 mg/dL (2.5-4.9); POTASSIUM 4.3 mmol/L (3.5-5.1); TOTAL PROTEIN, SERUM 6.8 g/dL (6.4-8.2)
[2023-01-29 08:11] VITALS: BP 145/62
[2023-01-29] MEDS: GLUCERNA SHAKE 237 ML CAN PO SCH ×2 (08:46→17:59)
[2023-01-29] MEDS: REMEDY ESSENTIAL ZINC PASTE 113 GM TOP SCH ×2 (09:39→20:51)
[2023-01-29] MEDS: PROPRANOLOL HCL 40 MG TABLET PO SCH ×2 (09:54→20:43)
[2023-01-29] MEDS: LIDOCAINE 5% PATCH TD SCH ×2 (09:54→09:57)
[2023-01-29] MEDS: ASPIRIN 81 MG TAB.CHEW PO SCH (09:55)
[2023-01-29] MEDS: DAPAGLIFLOZIN PROPANEDIOL 5 MG TABLET PO SCH (09:55)
[2023-01-29] MEDS: LOSARTAN POTASSIUM 50 MG TABLET PO SCH ×2 (09:55→20:44)
[2023-01-29] MEDS: METFORMIN HCL 500 MG TABLET PO SCH ×2 (09:55→18:23)
[2023-01-29] MEDS: MAGNESIUM OXIDE 250 MG TABLET PO SCH (09:56)
[2023-01-29] MEDS: AZATHIOPRINE 50 MG TABLET PO SCH (09:56)
[2023-01-29] MEDS: ACETAMINOPHEN 325 MG TABLET PO PRN (13:04)
--- NOTE | 2023-01-29 13:17 | NUR ---
Pt left floor with WOOL TAMPER via WC to get in private car driven by her son, Nerissa, to take her to her Dentist appointment which is at 2pm today. Pt, Dr. Hyatt, and Heavy Machinery Assembler, Christophe, all agree to pt leaving the hospital for this f/u dentist appointment.
--- NOTE | 2023-01-29 17:30 | NUR ---
Pt still away from hospital. Will hold her 5pm meds and 4:30pm accucheck until she returns.
--- NOTE | 2023-01-29 18:11 | NUR ---
Pt just returned from her trip to the dentist. Pt c/o RICO and nausea. Otherwise stable. Will check her blood sugar and provide medication as ordered.
[2023-01-29] MEDS: DULOXETINE 30 MG CAPSULE.DR PO SCH (20:43)
[2023-01-29] MEDS: ATORVASTATIN 40 MG TABLET PO SCH (20:43)
[2023-01-29] MEDS: INSULIN GLARGINE,HUM 300 UNITS/3 ML CARTRIDGE SQ SCH (20:50)
--- NOTE | 2023-01-30 04:00 | NUR ---
Uneventful night. AAOx4 Ambulates to the BR with walker. Voiding well. Admitted for CVA with left sided weakness. Needs attended. VSS. Kept comfortable. Tolerated all po meds well. No acute distress noted. No complaints presented during the shift. Will monitor patient.
[2023-01-30] MEDS: PANTOPRAZOLE SODIUM 40 MG TABLET.DR PO SCH (06:06)
[2023-01-30] MEDS: LEVOTHYROXINE SODIUM 50 MCG TABLET PO SCH (06:06)
[2023-01-30] MEDS: BLOOD SUGAR DIAGNOSTIC 1 EACH STRIP VI SCH ×5 (06:34→20:56)
[2023-01-30 07:45] VITALS: BP 117/61
[2023-01-30] MEDS: ASPIRIN 81 MG TAB.CHEW PO SCH (08:24)
[2023-01-30] MEDS: GLUCERNA SHAKE 237 ML CAN PO SCH (08:24)
[2023-01-30] MEDS: METFORMIN HCL 500 MG TABLET PO SCH ×2 (08:24→17:04)
[2023-01-30] MEDS: PROPRANOLOL HCL 40 MG TABLET PO SCH ×2 (08:24→20:33)
[2023-01-30] MEDS: LOSARTAN POTASSIUM 50 MG TABLET PO SCH ×2 (08:25→20:32)
[2023-01-30] MEDS: AZATHIOPRINE 50 MG TABLET PO SCH (08:26)
[2023-01-30] MEDS: DAPAGLIFLOZIN PROPANEDIOL 5 MG TABLET PO SCH (08:26)
[2023-01-30] MEDS: MAGNESIUM OXIDE 250 MG TABLET PO SCH (08:26)
[2023-01-30] MEDS: LIDOCAINE 5% PATCH TD SCH ×2 (08:27)
[2023-01-30] MEDS: REMEDY ESSENTIAL ZINC PASTE 113 GM TOP SCH ×2 (08:28→20:56)
[2023-01-30] MEDS: INSULIN REGULAR, HUMAN 300 UNIT/3 ML VIAL SQ PRN ×2 (12:09→17:06)
[2023-01-30 16:55] VITALS: BP 133/64
--- NOTE | 2023-01-30 17:49 | NUR ---
Patient A/Ox4, verbalizes simple needs and follows directions, cooperative with nursing staff/personal care/hygiene and compliant with her medication & treatment. Medications administered through out the shift as scheduled/ordered by MD with no ASE noted. No s/s of hypo/hyperglycemia or hypo/HTN. Patient tolerating meals and fluids well. No swallowing problems observed. Assisted patient with her ADLs/personal care/hygiene and as needed through out the shift. Patient continues under rehab for PT/OT skilled services as ordered, OOB with therapists for her therapy twice during shift, patient actively able to participate in therapy and richard. therapy well. Patient continent of both, assisted to the restroom as needed; patient was seen by Dr. Hyatt, rehab MD. with no new orders given. Routine rounds and frequent visual checks done. All needs attended well and met through out the shift. No SILVIA, remains in stable baseline status.
[2023-01-30] MEDS: ACETAMINOPHEN 325 MG TABLET PO PRN (20:31)
[2023-01-30] MEDS: DULOXETINE 30 MG CAPSULE.DR PO SCH (20:32)
[2023-01-30] MEDS: ATORVASTATIN 40 MG TABLET PO SCH (20:32)
[2023-01-30 20:48] VITALS: BP 164/77
[2023-01-30] MEDS: INSULIN GLARGINE,HUM 300 UNITS/3 ML CARTRIDGE SQ SCH (20:51)
--- NOTE | 2023-01-30 20:56 | NUR ---
fingerstick done and blood sugar is 109, no ISS given but given the HS Lantus .due po medicaiton given and tolerated with water.
--- NOTE | 2023-01-30 21:30 | NUR ---
called for bedpan patient voided about 400 ml of yellowish urine . changed soiled linens and gown and perineal care done .
[2023-01-31 04:00] VITALS: BP 133/64
[2023-01-31] MEDS: LEVOTHYROXINE SODIUM 50 MCG TABLET PO SCH (06:20)
[2023-01-31] MEDS: PANTOPRAZOLE SODIUM 40 MG TABLET.DR PO SCH (06:20)
[2023-01-31] MEDS: BLOOD SUGAR DIAGNOSTIC 1 EACH STRIP VI SCH ×4 (06:35→21:05)
[2023-01-31] MEDS: AZATHIOPRINE 50 MG TABLET PO SCH (08:20)
[2023-01-31] MEDS: METFORMIN HCL 500 MG TABLET PO SCH ×2 (08:21→16:31)
[2023-01-31] MEDS: MAGNESIUM OXIDE 250 MG TABLET PO SCH (08:21)
[2023-01-31] MEDS: LOSARTAN POTASSIUM 50 MG TABLET PO SCH ×2 (08:21→20:49)
[2023-01-31] MEDS: DAPAGLIFLOZIN PROPANEDIOL 5 MG TABLET PO SCH (08:21)
[2023-01-31] MEDS: ASPIRIN 81 MG TAB.CHEW PO SCH (08:22)
[2023-01-31] MEDS: GLUCERNA SHAKE 237 ML CAN PO SCH (08:22)
[2023-01-31] MEDS: PROPRANOLOL HCL 40 MG TABLET PO SCH ×2 (08:22→20:48)
[2023-01-31] MEDS: REMEDY ESSENTIAL ZINC PASTE 113 GM TOP SCH ×2 (08:23→20:49)
[2023-01-31] MEDS: LIDOCAINE 5% PATCH TD SCH ×2 (08:23)
[2023-01-31 08:45] VITALS: BP 121/51
[2023-01-31 16:00] VITALS: BP 147/74
[2023-01-31] MEDS: DULOXETINE 30 MG CAPSULE.DR PO SCH (20:48)
[2023-01-31] MEDS: ATORVASTATIN 40 MG TABLET PO SCH (20:49)
[2023-01-31] MEDS: INSULIN GLARGINE,HUM 300 UNITS/3 ML CARTRIDGE SQ SCH (21:01)
[2023-01-31 21:11] VITALS: BP 150/68
[2023-01-31 22:38] VITALS: BP 143/84
[2023-02-01 06:01] VITALS: BP 115/60
[2023-02-01] MEDS: LEVOTHYROXINE SODIUM 50 MCG TABLET PO SCH (06:14)
[2023-02-01] MEDS: PANTOPRAZOLE SODIUM 40 MG TABLET.DR PO SCH (06:14)
[2023-02-01] MEDS: BLOOD SUGAR DIAGNOSTIC 1 EACH STRIP VI SCH ×4 (06:18→22:08)
--- NOTE | 2023-02-01 06:30 | NUR ---
no events or distress noted overnight, patient is independent for position change. no skin issues noted.
[2023-02-01 08:00] VITALS: BP 122/53
[2023-02-01] MEDS: ASPIRIN 81 MG TAB.CHEW PO SCH (09:46)
[2023-02-01] MEDS: AZATHIOPRINE 50 MG TABLET PO SCH (09:46)
[2023-02-01] MEDS: DAPAGLIFLOZIN PROPANEDIOL 5 MG TABLET PO SCH (09:46)
[2023-02-01] MEDS: MAGNESIUM OXIDE 250 MG TABLET PO SCH (09:47)
[2023-02-01] MEDS: GLUCERNA SHAKE 237 ML CAN PO SCH (09:50)
[2023-02-01] MEDS: LOSARTAN POTASSIUM 50 MG TABLET PO SCH ×2 (09:54→22:15)
[2023-02-01] MEDS: PROPRANOLOL HCL 40 MG TABLET PO SCH ×2 (09:54→21:56)
[2023-02-01] MEDS: METFORMIN HCL 500 MG TABLET PO SCH ×2 (09:54→17:13)
[2023-02-01] MEDS: LIDOCAINE 5% PATCH TD SCH ×2 (09:55→11:21)
--- NOTE | 2023-02-01 10:00 | NUR ---
RCVD PT IN BED. AAOX4. ROUTINE MEDS GIVEN AND PT TOLERATED WELL. PHYSICAL THERAPY PROVIDED. ALL NEEDS ATTENDED.
[2023-02-01] MEDS: REMEDY ESSENTIAL ZINC PASTE 113 GM TOP SCH ×2 (10:04→22:06)
[2023-02-01] MEDS: INSULIN REGULAR, HUMAN 300 UNIT/3 ML VIAL SQ PRN ×2 (11:34→22:13)
[2023-02-01 16:00] VITALS: BP 109/57
[2023-02-01] MEDS: ACETAMINOPHEN 325 MG TABLET PO PRN (17:13)
--- NOTE | 2023-02-01 19:00 | NUR ---
RECD PT IN BED, NO COMPLAINTS PRESENTED, NEEDS ATTENDED TO.VOIDED FREELY WELL. ON DNR STATUS,NO SSX OF DIABETIC CRISIS.
[2023-02-01 20:00] VITALS: BP 130/57
[2023-02-01] MEDS: DULOXETINE 30 MG CAPSULE.DR PO SCH (21:54)
[2023-02-01] MEDS: ATORVASTATIN 40 MG TABLET PO SCH (21:57)
[2023-02-01] MEDS: INSULIN GLARGINE,HUM 300 UNITS/3 ML CARTRIDGE SQ SCH (22:02)
--- NOTE | 2023-02-01 22:11 | NUR ---
DUE MEDS GIVEN,HS SNACKS PROVIDED. BS AT HS 148, 2UNITS REG INSULIN PLUS 14 U OF LANTUS GIVEN. MONITORED FOR ANY DIABETIC CRISES.FLUIDS TAKEN WELL
--- NOTE | 2023-02-02 02:14 | NUR ---
UP TO BR W/ MIN ASSIST, KEPT DRY AND CLEAN.SLEPT AT SHORT INTERVALS.
[2023-02-02 04:00] VITALS: BP 121/66
[2023-02-02] MEDS: LEVOTHYROXINE SODIUM 50 MCG TABLET PO SCH (06:21)
[2023-02-02] MEDS: PANTOPRAZOLE SODIUM 40 MG TABLET.DR PO SCH (06:21)
[2023-02-02] MEDS: BLOOD SUGAR DIAGNOSTIC 1 EACH STRIP VI SCH ×4 (07:11→20:38)
--- NOTE | 2023-02-02 07:12 | NUR ---
ENDORSED TO AM NURSE IN FAIR CONDITION, BSAC 72,ASYMPTOMATIC OF ANY DIABETIC CRISES.
[2023-02-02] MEDS: ASPIRIN 81 MG TAB.CHEW PO SCH (09:28)
[2023-02-02] MEDS: METFORMIN HCL 500 MG TABLET PO SCH ×2 (09:28→16:30)
[2023-02-02] MEDS: LOSARTAN POTASSIUM 50 MG TABLET PO SCH ×2 (09:28→20:36)
[2023-02-02 09:29] VITALS: BP 136/67
[2023-02-02] MEDS: PROPRANOLOL HCL 40 MG TABLET PO SCH ×2 (09:29→20:36)
[2023-02-02] MEDS: LIDOCAINE 5% PATCH TD SCH ×2 (09:29)
[2023-02-02] MEDS: DAPAGLIFLOZIN PROPANEDIOL 5 MG TABLET PO SCH (09:30)
[2023-02-02] MEDS: MAGNESIUM OXIDE 250 MG TABLET PO SCH (09:30)
[2023-02-02] MEDS: AZATHIOPRINE 50 MG TABLET PO SCH (09:30)
[2023-02-02] MEDS: POLYVINYL ALCOHOL OPHT DROPS 15 ML BOTTLE EACHEYE PRN (09:31)
[2023-02-02] MEDS: REMEDY ESSENTIAL ZINC PASTE 113 GM TOP SCH ×2 (09:37→20:39)
[2023-02-02] MEDS: GLUCERNA SHAKE 237 ML CAN PO SCH (10:06)
[2023-02-02 11:05] VITALS: BP 117/50
[2023-02-02 11:10] VITALS: BP 137/69
[2023-02-02 11:15] VITALS: BP 129/68
[2023-02-02] MEDS: INSULIN REGULAR, HUMAN 300 UNIT/3 ML VIAL SQ PRN (12:19)
[2023-02-02] MEDS: ASPIRIN/ACETAMINOPHEN/CAFFEINE TABLET PO PRN (16:31)
--- NOTE | 2023-02-02 19:22 | NUR ---
RECEIVED REPORT FROM [facility] SHIFT RN. PATIENT IS ALERT AND ORIENTED X4. VITAL SIGNS STABLE. PATIENT TOLERATES PO MEDICATIONS AND DIET WELL. PATIENT DENIES PAIN. PATIENT PARTICIPATES WITH PHYSICAL AND OCCUPATIONAL THERAPY PER SCHEDULE. PATIENT HAD COMPLAINT OF HEADACHE. RN GAVE MEDICATIONS ORDERED. PATIENT EXPRESSED RELIEF OF HEADACHE. PATIENT COMPLAINT OF STOMACH PAIN. PATIENT HAD 1 BOWEL MOVEMENT. MD MADE AWARE BY PATIENT. NO SIGN AND SYMPTOMS OF HYPOGLYCEMIA. NO ACUTE DISTRESS. ALL NEEDS MET AT THIS TIME. CALL LIGHT WITHIN REACH. FALL PRECAUTIONS IN PLACE. RN ENDORSED CONTINUATION OF CARE TO [facility] SHIFT RN.
[2023-02-02 20:00] VITALS: BP 142/73
[2023-02-02] MEDS: DULOXETINE 30 MG CAPSULE.DR PO SCH (20:34)
[2023-02-02] MEDS: ATORVASTATIN 40 MG TABLET PO SCH (20:36)
[2023-02-02] MEDS: INSULIN GLARGINE,HUM 300 UNITS/3 ML CARTRIDGE SQ SCH (20:38)
[2023-02-03] MEDS: LEVOTHYROXINE SODIUM 50 MCG TABLET PO SCH (06:23)
[2023-02-03] MEDS: PANTOPRAZOLE SODIUM 40 MG TABLET.DR PO SCH (06:23)
[2023-02-03] MEDS: BLOOD SUGAR DIAGNOSTIC 1 EACH STRIP VI SCH ×4 (06:30→21:20)
--- NOTE | 2023-02-03 06:30 | NUR ---
FBS 72 mg/dl. Denies s/s of hypoglycemia. Door jiuce provided. Will recheck BS again after 30 minutes.
--- NOTE | 2023-02-03 06:52 | NUR ---
BS rechecked, went up to 88 mg/dl. Will endorsed accordingly.
[2023-02-03 07:30] VITALS: BP 114/54
[2023-02-03 09:25] LABS: HEMATOCRIT 36.8 % (31.2-41.9); MEAN CORPUSCULAR HEMOGLOBIN 31.6 uug (24.7-32.8); MEAN CORPUSCULAR VOLUME 93.9 fL (75.5-95.3); PLATELET COUNT (AUTO) 219 K/uL (179-408)
[2023-02-03 09:38] LABS: BILIRUBIN,TOTAL 0.6 mg/dL (0.2-1.0); CREATININE 0.8 mg/dL (0.6-1.3); MAGNESIUM 1.7 mg/dL (1.8-2.4); PHOSPHOROUS 4.1 mg/dL (2.5-4.9); POTASSIUM 4.2 mmol/L (3.5-5.1); TOTAL PROTEIN, SERUM 6.6 g/dL (6.4-8.2)
[2023-02-03] MEDS: ASPIRIN 81 MG TAB.CHEW PO SCH (09:52)
[2023-02-03] MEDS: LIDOCAINE 5% PATCH TD SCH ×2 (09:52)
[2023-02-03] MEDS: METFORMIN HCL 500 MG TABLET PO SCH ×2 (09:52→16:41)
[2023-02-03] MEDS: DAPAGLIFLOZIN PROPANEDIOL 5 MG TABLET PO SCH (09:52)
[2023-02-03] MEDS: AZATHIOPRINE 50 MG TABLET PO SCH (09:53)
[2023-02-03] MEDS: MAGNESIUM OXIDE 250 MG TABLET PO SCH (09:53)
[2023-02-03] MEDS: LOSARTAN POTASSIUM 50 MG TABLET PO SCH ×2 (09:54→21:13)
[2023-02-03] MEDS: PROPRANOLOL HCL 40 MG TABLET PO SCH ×2 (09:54→21:14)
[2023-02-03] MEDS: REMEDY ESSENTIAL ZINC PASTE 113 GM TOP SCH ×2 (09:55→21:19)
[2023-02-03] MEDS: POLYVINYL ALCOHOL OPHT DROPS 15 ML BOTTLE EACHEYE PRN (09:56)
[2023-02-03] MEDS: GLUCERNA SHAKE 237 ML CAN PO SCH (10:10)
[2023-02-03] MEDS: ACETAMINOPHEN 325 MG TABLET PO PRN (13:17)
[2023-02-03 16:00] VITALS: BP 118/56
--- NOTE | 2023-02-03 20:02 | NUR ---
RECEIVED REPORT FROM [facility] SHIFT RN. PATIENT IS ALERT AND ORIENTED X4. VITAL SIGNS STABLE. PATIENT TOLERATES PO MEDICATIONS AND DIET WELL. PATIENT DENIES PAIN. PATIENT PARTICIPATES WITH PHYSICAL AND OCCUPATIONAL THERAPY PER SCHEDULE. PATIENT HAD COMPLAINT OF HEADACHE. RN GAVE MEDICATIONS ORDERED. PATIENT EXPRESSED RELIEF OF HEADACHE. NO SIGN AND SYMPTOMS OF HYPOGLYCEMIA. NO ACUTE DISTRESS. ALL NEEDS MET AT THIS TIME. CALL LIGHT WITHIN REACH. FALL PRECAUTIONS IN PLACE. RN ENDORSED CONTINUATION OF CARE TO [facility] SHIFT RN.
[2023-02-03] MEDS: DULOXETINE 30 MG CAPSULE.DR PO SCH (21:13)
[2023-02-03] MEDS: ATORVASTATIN 40 MG TABLET PO SCH (21:14)
[2023-02-03] MEDS: INSULIN GLARGINE,HUM 300 UNITS/3 ML CARTRIDGE SQ SCH (21:22)
[2023-02-03 22:00] VITALS: BP 130/82
[2023-02-04 04:00] VITALS: BP 128/60
[2023-02-04] MEDS: PANTOPRAZOLE SODIUM 40 MG TABLET.DR PO SCH (06:10)
[2023-02-04] MEDS: LEVOTHYROXINE SODIUM 50 MCG TABLET PO SCH (06:10)
[2023-02-04] MEDS: BLOOD SUGAR DIAGNOSTIC 1 EACH STRIP VI SCH ×4 (06:33→20:43)
--- NOTE | 2023-02-04 06:48 | NUR ---
AAOx4 Admitted for CVA with left side weakness. All needs attended. VSS Continent of bowel and bladder. BM noted this shift. Denies any pain nor discomfort. Accucheck this am 168. No complaints presented during the shift. Will monitor patient.
[2023-02-04] MEDS: INSULIN REGULAR, HUMAN 300 UNIT/3 ML VIAL SQ PRN ×4 (07:41→20:51)
[2023-02-04] MEDS: PROPRANOLOL HCL 40 MG TABLET PO SCH ×2 (08:26→20:34)
[2023-02-04] MEDS: ASPIRIN 81 MG TAB.CHEW PO SCH (08:26)
[2023-02-04] MEDS: LOSARTAN POTASSIUM 50 MG TABLET PO SCH ×2 (08:27→20:31)
[2023-02-04] MEDS: MAGNESIUM OXIDE 250 MG TABLET PO SCH (08:27)
[2023-02-04] MEDS: AZATHIOPRINE 50 MG TABLET PO SCH (08:27)
[2023-02-04] MEDS: DAPAGLIFLOZIN PROPANEDIOL 5 MG TABLET PO SCH (08:28)
[2023-02-04] MEDS: REMEDY ESSENTIAL ZINC PASTE 113 GM TOP SCH ×2 (08:29→20:34)
[2023-02-04] MEDS: LIDOCAINE 5% PATCH TD SCH ×2 (08:29)
[2023-02-04] MEDS: GLUCERNA SHAKE 237 ML CAN PO SCH (08:29)
[2023-02-04] MEDS: METFORMIN HCL 500 MG TABLET PO SCH ×2 (08:32→16:29)
[2023-02-04] MEDS: ASPIRIN/ACETAMINOPHEN/CAFFEINE TABLET PO PRN (13:26)
[2023-02-04] MEDS ORDERED: ONDANSETRON HCL 4 MG TABLET PO PRN (13:30)
--- NOTE | 2023-02-04 14:00 | NUR ---
INTERDISCIPLINARY TEAM CONFERENCE
--- NOTE | 2023-02-04 18:04 | NUR ---
Patient alert/ox4, verbally communicative, OOB with rehab personnel for PT/TO skilled services during shift as planned. Assisted patient with her personal care/hygiene through out the shift. No SS of hypo/hyperglycemia or hypo/HTN noted. Scheduled medications administered as ordered with no ASE noted. FS for BS checks AC/HS with SS coverage as ordered. Patient eating and drinking well. C/O GI discomfort during shift of feeling nauseous. Obtained PRN orders for anti-emetic medication, administered and effective. Patient ordered jhonny loco for dinner, richard. well. Assist with ADLs and at all times. Patient to be discharged tomorrow.
--- NOTE | 2023-02-04 20:00 | NUR ---
Pt received awake, calm, A/O x4, denies disstress, able to state her needs, uses bedpan for toileting. Pt was compliant iwth medicaiton, vs stable.
[2023-02-04] MEDS: DULOXETINE 30 MG CAPSULE.DR PO SCH (20:31)
[2023-02-04] MEDS: ATORVASTATIN 40 MG TABLET PO SCH (20:34)
[2023-02-04 20:39] VITALS: BP 114/79
[2023-02-04] MEDS: INSULIN GLARGINE,HUM 300 UNITS/3 ML CARTRIDGE SQ SCH (20:49)
[2023-02-05 06:26] VITALS: BP 123/59
[2023-02-05] MEDS: PANTOPRAZOLE SODIUM 40 MG TABLET.DR PO SCH (06:27)
[2023-02-05] MEDS: LEVOTHYROXINE SODIUM 50 MCG TABLET PO SCH (06:27)
[2023-02-05] MEDS: BLOOD SUGAR DIAGNOSTIC 1 EACH STRIP VI SCH ×3 (06:51→17:00)
[2023-02-05] MEDS: ASPIRIN 81 MG TAB.CHEW PO SCH (09:28)
[2023-02-05] MEDS: METFORMIN HCL 500 MG TABLET PO SCH ×2 (09:29→17:06)
[2023-02-05] MEDS: MAGNESIUM OXIDE 250 MG TABLET PO SCH (09:29)
[2023-02-05] MEDS: LIDOCAINE 5% PATCH TD SCH ×2 (09:30→09:31)
[2023-02-05] MEDS: AZATHIOPRINE 50 MG TABLET PO SCH (09:30)
[2023-02-05] MEDS: DAPAGLIFLOZIN PROPANEDIOL 5 MG TABLET PO SCH (09:30)
[2023-02-05] MEDS: GLUCERNA SHAKE 237 ML CAN PO SCH (09:30)
[2023-02-05] MEDS: REMEDY ESSENTIAL ZINC PASTE 113 GM TOP SCH (09:31)
[2023-02-05] MEDS: LOSARTAN POTASSIUM 50 MG TABLET PO SCH (09:51)
[2023-02-05] MEDS: PROPRANOLOL HCL 40 MG TABLET PO SCH (09:52)
[2023-02-05] MEDS: ASPIRIN/ACETAMINOPHEN/CAFFEINE TABLET PO PRN (09:54)
[2023-02-05] MEDS: INSULIN REGULAR, HUMAN 300 UNIT/3 ML VIAL SQ PRN ×2 (12:10→17:02)
[2023-02-05 15:45] VITALS: BP 130/65
--- NOTE | 2023-02-05 19:01 | NUR ---
DISCHARGE: Pt discharged via WC by [employer] to go home in private car with son, Nerissa. Pt verbalized understanding of d/c instructions. Pt in stable condition, no s/s of distress noted, pt had all belongings. Pt appeared happy to be going home, smiling as she left.
== END 2023-02-05 19:00 | disposition home health service (06) | DRG 56 ==
PROVIDERS: ADMIT Physical Medicine & Rehabilitation Pain Medicine; ATTEND Physical Medicine & Rehabilitation Pain Medicine
DX: I69.254 Hemiplegia and hemiparesis following other nontraumatic intracranial hemorrhage affecting left non-dominant side (principal); Q28.3 Other malformations of cerebral vessels; R53.1 Weakness; E03.9 Hypothyroidism, unspecified; E78.5 Hyperlipidemia, unspecified; I10 Essential (primary) hypertension; I48.91 Unspecified atrial fibrillation; I69.292 Facial weakness following other nontraumatic intracranial hemorrhage; Z95.810 Presence of automatic (implantable) cardiac defibrillator; G43.909 Migraine, unspecified, not intractable, without status migrainosus; E11.42 Type 2 diabetes mellitus with diabetic polyneuropathy; D86.9 Sarcoidosis, unspecified; D18.02 Hemangioma of intracranial structures; F32.A Depression, unspecified; I48.0 Paroxysmal atrial fibrillation; I95.1 Orthostatic hypotension; M19.019 Primary osteoarthritis, unspecified shoulder; M62.838 Other muscle spasm
CPT/HCPCS: 36415; 71045; 83735; 84100; 85025; 93307; 97535-GO-CO; A4663; A6213; A9150; J1815; J7040; J7500; J8540; Q0162

== ENCOUNTER 2023-06-19 20:31 | Inpatient (IN) | payer MEDICARE, OTHER ==
[~2023-06-19] VITALS: Ht 157.5 cm; Wt 67.4 kg
[2023-06-19 20:00] VITALS: BP 130/70; TEMP 97.8; O2SAT 95
[~2023-06-19 20:31] MED LIST changes: -APIX5TAB PO; +ASPI81TA31 PO; -CALC300T4 PO; +CLON0.1T PO; -CYAN100T44 PO; +DEXA4TAB PO; +DICL100G31 TP; +DULO30CA2 PO; -GABA-532 PO; +HYDR-3972 PO; -HYDR25TA86 PO; +IPRA0.2S48 NEB; -IPRA0.2S6 NEB; +LIDO1ADH82 TP; -LIDO30AD10 TD; +MELA3TAB41 PO; -METO-357 PO; -MICO200S3 VG; +NIFE-35 PO; -ONDA4TAB5 PO; +PROP40TA7 PO; +SENN-291 PO; -SERT50TA PO; -TRAZ-252 PO
[2023-06-19] MEDS ORDERED: ENOX40DI SQ (23:39)
[2023-06-19] MEDS ORDERED: INSULIN REGULAR, HUMAN 300 UNIT/3 ML VIAL SQ PRN (23:45)
[2023-06-19] MEDS ORDERED: DEXTROSE 50% 50 ML DISP.SYRIN IV PRN (23:45)
[2023-06-19] MEDS ORDERED: INSULIN REGULAR, HUMAN 300 UNITS/3 ML VIAL SQ PRN (23:45)
[2023-06-20] MEDS ORDERED: MORP4CAR IV (00:26)
[2023-06-20] MEDS ORDERED: GABA-536 PO (00:26)
[2023-06-20] MEDS ORDERED: ONDA4SOL PO (00:26)
[2023-06-20] MEDS ORDERED: METF-440 PO (00:26)
[2023-06-20] MEDS ORDERED: VENL37.55 PO (00:26)
[2023-06-20] MEDS ORDERED: SITA50TA PO (00:26)
[2023-06-20] MEDS ORDERED: ZINC57OI3 TP (00:26)
[2023-06-20] MEDS ORDERED: SUMA6VIA17 SQ (00:26)
[2023-06-20 04:00] VITALS: BP 126/67; TEMP 97.6; O2SAT 96
[2023-06-20] MEDS: BLOOD SUGAR DIAGNOSTIC 1 EACH STRIP VI SCH ×5 (07:04→20:39)
[2023-06-20 08:00] VITALS: BP 145/71; TEMP 97.5; O2SAT 96
[2023-06-20] MEDS: OXYCODONE/APAP 5-325 MG TABLET PO PRN (10:53)
[2023-06-20] MEDS ORDERED: DEXTROSE 50% 50 ML DISP.SYRIN IV PRN (14:00)
[2023-06-20 15:37] VITALS: TEMP 97.9; O2SAT 93
[2023-06-20] MEDS ORDERED: SUMATRIPTAN SUCCINATE 6 MG/0.5 ML VIAL SQ PRN (17:00)
[2023-06-20] MEDS ORDERED: HYDROCODONE/APAP 5-325MG TABLET PO PRN (17:00)
[2023-06-20] MEDS ORDERED: ACETAMINOPHEN ES 500 MG TABLET- SA PATIENTS-PAIN ONLY PO PRN (17:00)
[2023-06-20] MEDS ORDERED: CLONIDINE HCL 0.1 MG TABLET PO PRN (17:00)
[2023-06-20] MEDS ORDERED: ONDANSETRON HCL 4 MG/5 ML UDC ORAL SOL PO PRN (17:00)
[2023-06-20] MEDS ORDERED: POLYVINYL ALCOHOL OPHT DROPS 15 ML BOTTLE EACHEYE PRN (17:00)
[2023-06-20] MEDS ORDERED: GABAPENTIN 400 MG CAPSULE PO SCH (17:00)
[2023-06-20] MEDS: INSULIN REGULAR, HUMAN 300 UNIT/3 ML VIAL SQ PRN ×2 (17:41→20:47)
[2023-06-20] MEDS: PROPRANOLOL HCL 40 MG TABLET PO SCH (17:42)
[2023-06-20] MEDS: NIFEdipine XL 30 MG TABSR PO SCH (17:42)
[2023-06-20] MEDS: SENNOSIDES/DOCUSATE SODIUM TABLET PO PRN (17:42)
[2023-06-20] MEDS: METFORMIN HCL 500 MG TABLET PO SCH ×2 (17:42→18:00)
[2023-06-20] MEDS: AZATHIOPRINE 50 MG TABLET PO SCH (17:43)
[2023-06-20] MEDS: LINAGLIPTIN 5 MG TABLET PO SCH (17:48)
[2023-06-20] MEDS: VENLAFAXINE XR 37.5 MG CAP.SR.24H PO SCH (17:48)
[2023-06-20] MEDS: GABAPENTIN 100 MG CAPSULE PO SCH (17:48)
[2023-06-20] MEDS: ACETAMINOPHEN 650 MG/20.3 ML LIQUID UDC PO PRN (19:57)
[2023-06-20 20:00] VITALS: BP 143/69; TEMP 96.2; O2SAT 98
[2023-06-20] MEDS: ATORVASTATIN 40 MG TABLET PO SCH (20:39)
[2023-06-21 04:32] VITALS: BP 121/59; TEMP 97.9; O2SAT 96
[2023-06-21] MEDS: ACETAMINOPHEN 650 MG/20.3 ML LIQUID UDC PO PRN (04:41)
[2023-06-21] MEDS: LEVOTHYROXINE SODIUM 50 MCG TABLET PO SCH (06:03)
[2023-06-21] MEDS: BLOOD SUGAR DIAGNOSTIC 1 EACH STRIP VI SCH ×4 (06:54→21:35)
[2023-06-21 08:08] VITALS: BP 125/60; TEMP 97.9; O2SAT 96
[2023-06-21] MEDS: GABAPENTIN 100 MG CAPSULE PO SCH ×3 (08:38→16:00)
[2023-06-21] MEDS: VENLAFAXINE XR 37.5 MG CAP.SR.24H PO SCH (08:38)
[2023-06-21] MEDS: NIFEdipine XL 30 MG TABSR PO SCH ×2 (08:39→16:00)
[2023-06-21] MEDS: PROPRANOLOL HCL 40 MG TABLET PO SCH ×2 (08:39→16:00)
[2023-06-21] MEDS: ASPIRIN 81 MG TAB.CHEW PO SCH (08:40)
[2023-06-21] MEDS: METFORMIN HCL 500 MG TABLET PO SCH ×2 (08:40→17:30)
[2023-06-21] MEDS: LINAGLIPTIN 5 MG TABLET PO SCH (08:40)
[2023-06-21] MEDS: AZATHIOPRINE 50 MG TABLET PO SCH (08:43)
[2023-06-21] MEDS: PANTOPRAZOLE SODIUM 40 MG TABLET.DR PO SCH (08:43)
[2023-06-21] MEDS ORDERED: HYDROCODONE/APAP 5-325MG TABLET PO PRN (09:15)
[2023-06-21] MEDS: INSULIN REGULAR, HUMAN 300 UNIT/3 ML VIAL SQ PRN ×2 (11:32→15:59)
[2023-06-21 15:42] VITALS: BP 135/65; TEMP 97.8; O2SAT 96
[2023-06-21] MEDS: ONDANSETRON HCL 4 MG TABLET PO PRN (20:22)
[2023-06-21] MEDS: ATORVASTATIN 40 MG TABLET PO SCH (20:22)
[2023-06-21 22:09] VITALS: BP 132/68; TEMP 98.6
[2023-06-22 04:27] VITALS: BP 124/59; TEMP 97.6; O2SAT 97
[2023-06-22] MEDS: PANTOPRAZOLE SODIUM 40 MG TABLET.DR PO SCH (06:33)
[2023-06-22] MEDS: LEVOTHYROXINE SODIUM 50 MCG TABLET PO SCH (06:33)
[2023-06-22] MEDS: BLOOD SUGAR DIAGNOSTIC 1 EACH STRIP VI SCH ×4 (06:38→20:40)
[2023-06-22 07:40] VITALS: BP 127/62; TEMP 98.5; O2SAT 97
[2023-06-22] MEDS: METFORMIN HCL 500 MG TABLET PO SCH ×2 (08:21→17:11)
[2023-06-22] MEDS: PROPRANOLOL HCL 40 MG TABLET PO SCH ×2 (08:21→17:00)
[2023-06-22] MEDS: LINAGLIPTIN 5 MG TABLET PO SCH (08:21)
[2023-06-22] MEDS: NIFEdipine XL 30 MG TABSR PO SCH ×2 (08:21→17:00)
[2023-06-22] MEDS: AZATHIOPRINE 50 MG TABLET PO SCH (08:21)
[2023-06-22] MEDS: ASPIRIN 81 MG TAB.CHEW PO SCH (08:22)
[2023-06-22] MEDS: VENLAFAXINE XR 37.5 MG CAP.SR.24H PO SCH (08:22)
[2023-06-22] MEDS: GABAPENTIN 100 MG CAPSULE PO SCH ×3 (08:22→17:08)
[2023-06-22 15:50] VITALS: BP 126/75; TEMP 98.4; O2SAT 96
[2023-06-22] MEDS: INSULIN REGULAR, HUMAN 300 UNIT/3 ML VIAL SQ PRN (17:07)
[2023-06-22 20:00] VITALS: BP 114/58; TEMP 97.8; O2SAT 96
[2023-06-22] MEDS: ATORVASTATIN 40 MG TABLET PO SCH (20:41)
[2023-06-23 04:00] VITALS: BP 117/64; TEMP 97.8; O2SAT 100
[2023-06-23] MEDS: LEVOTHYROXINE SODIUM 50 MCG TABLET PO SCH (06:39)
[2023-06-23] MEDS: PANTOPRAZOLE SODIUM 40 MG TABLET.DR PO SCH (06:39)
[2023-06-23] MEDS: BLOOD SUGAR DIAGNOSTIC 1 EACH STRIP VI SCH ×4 (06:40→21:00)
[2023-06-23 08:00] VITALS: BP 121/63; TEMP 97.7; O2SAT 96
[2023-06-23] MEDS: LINAGLIPTIN 5 MG TABLET PO SCH (09:23)
[2023-06-23] MEDS: ASPIRIN 81 MG TAB.CHEW PO SCH (09:23)
[2023-06-23] MEDS: PROPRANOLOL HCL 40 MG TABLET PO SCH ×2 (09:23→17:03)
[2023-06-23] MEDS: NIFEdipine XL 30 MG TABSR PO SCH ×2 (09:24→17:03)
[2023-06-23] MEDS: GABAPENTIN 100 MG CAPSULE PO SCH ×3 (09:24→17:04)
[2023-06-23] MEDS: VENLAFAXINE XR 37.5 MG CAP.SR.24H PO SCH (09:25)
[2023-06-23] MEDS: METFORMIN HCL 500 MG TABLET PO SCH ×2 (09:32→17:19)
[2023-06-23] MEDS: AZATHIOPRINE 50 MG TABLET PO SCH (09:32)
[2023-06-23] MEDS: SENNOSIDES/DOCUSATE SODIUM TABLET PO PRN (11:38)
[2023-06-23] MEDS: INSULIN REGULAR, HUMAN 300 UNIT/3 ML VIAL SQ PRN ×2 (11:45→17:10)
[2023-06-23 15:05] VITALS: BP 149/71; TEMP 97.8; O2SAT 98
[2023-06-23] MEDS: ACETAMINOPHEN 650 MG/20.3 ML LIQUID UDC PO PRN (15:15)
[2023-06-23 20:00] VITALS: BP 124/63; TEMP 97.3; O2SAT 97
[2023-06-23] MEDS: ATORVASTATIN 40 MG TABLET PO SCH (20:50)
[2023-06-23] MEDS: OXYCODONE/APAP 5-325 MG TABLET PO PRN (20:54)
[2023-06-24 04:00] VITALS: BP 95/52; TEMP 98; O2SAT 98
[2023-06-24] MEDS: PANTOPRAZOLE SODIUM 40 MG TABLET.DR PO SCH (06:26)
[2023-06-24] MEDS: LEVOTHYROXINE SODIUM 50 MCG TABLET PO SCH (06:26)
[2023-06-24] MEDS ORDERED: REMEDY ESSENTIAL ZINC PASTE 113 GM TOP PRN (07:45)
[2023-06-24] MEDS: BLOOD SUGAR DIAGNOSTIC 1 EACH STRIP VI SCH ×4 (07:49→20:52)
[2023-06-24 07:55] VITALS: BP 96/53; TEMP 97.7; O2SAT 97
[2023-06-24] MEDS: ASPIRIN 81 MG TAB.CHEW PO SCH (08:40)
[2023-06-24] MEDS: LINAGLIPTIN 5 MG TABLET PO SCH (08:41)
[2023-06-24] MEDS: VENLAFAXINE XR 37.5 MG CAP.SR.24H PO SCH (08:41)
[2023-06-24] MEDS: GABAPENTIN 100 MG CAPSULE PO SCH ×3 (08:41→16:51)
[2023-06-24] MEDS: NIFEdipine XL 30 MG TABSR PO SCH ×2 (08:41→16:51)
[2023-06-24] MEDS: PROPRANOLOL HCL 40 MG TABLET PO SCH ×2 (08:41→16:51)
[2023-06-24] MEDS: METFORMIN HCL 500 MG TABLET PO SCH ×2 (08:41→16:53)
[2023-06-24] MEDS: REMEDY ESSENTIAL ZINC PASTE 113 GM TOP SCH ×2 (08:44→21:27)
[2023-06-24] MEDS: AZATHIOPRINE 50 MG TABLET PO SCH (10:04)
[2023-06-24] MEDS: SENNOSIDES/DOCUSATE SODIUM TABLET PO PRN (10:46)
[2023-06-24] MEDS: OXYCODONE/APAP 5-325 MG TABLET PO PRN ×2 (10:48→20:51)
[2023-06-24] MEDS: ASPIRIN/ACETAMINOPHEN/CAFFEINE TABLET PO PRN (15:29)
[2023-06-24 15:48] VITALS: BP 116/61; TEMP 98.2; O2SAT 98
[2023-06-24] MEDS: INSULIN REGULAR, HUMAN 300 UNIT/3 ML VIAL SQ PRN ×2 (18:02→20:53)
[2023-06-24 20:15] VITALS: BP 119/67; TEMP 98.5; O2SAT 99
[2023-06-24] MEDS: ATORVASTATIN 40 MG TABLET PO SCH (20:51)
[2023-06-24] MEDS ORDERED: LIDOCAINE 5% PATCH TD SCH (21:00)
[2023-06-25 04:45] VITALS: BP 126/67; TEMP 97.7; O2SAT 98
[2023-06-25] MEDS: OXYCODONE/APAP 5-325 MG TABLET PO PRN ×2 (04:51→17:14)
[2023-06-25] MEDS: LEVOTHYROXINE SODIUM 50 MCG TABLET PO SCH (05:48)
[2023-06-25] MEDS: PANTOPRAZOLE SODIUM 40 MG TABLET.DR PO SCH (05:48)
[2023-06-25] MEDS: BLOOD SUGAR DIAGNOSTIC 1 EACH STRIP VI SCH ×4 (07:30→21:43)
[2023-06-25 07:31] VITALS: BP 110/67; TEMP 97.7; O2SAT 95
[2023-06-25] MEDS: METFORMIN HCL 500 MG TABLET PO SCH ×2 (08:36→17:03)
[2023-06-25] MEDS: AZATHIOPRINE 50 MG TABLET PO SCH (08:37)
[2023-06-25] MEDS: GABAPENTIN 100 MG CAPSULE PO SCH ×3 (08:37→17:02)
[2023-06-25] MEDS: ASPIRIN 81 MG TAB.CHEW PO SCH (08:37)
[2023-06-25] MEDS: LINAGLIPTIN 5 MG TABLET PO SCH (08:37)
[2023-06-25] MEDS: VENLAFAXINE XR 37.5 MG CAP.SR.24H PO SCH (08:38)
[2023-06-25] MEDS: NIFEdipine XL 30 MG TABSR PO SCH ×2 (08:38→17:02)
[2023-06-25] MEDS: PROPRANOLOL HCL 40 MG TABLET PO SCH ×2 (08:38→17:02)
[2023-06-25] MEDS: REMEDY ESSENTIAL ZINC PASTE 113 GM TOP SCH ×2 (08:39→21:26)
[2023-06-25] MEDS: ACETAMINOPHEN 650 MG/20.3 ML LIQUID UDC PO PRN (08:44)
[2023-06-25] MEDS: ASPIRIN/ACETAMINOPHEN/CAFFEINE TABLET PO PRN (08:44)
[2023-06-25] MEDS: INSULIN REGULAR, HUMAN 300 UNIT/3 ML VIAL SQ PRN (11:58)
[2023-06-25] MEDS ORDERED: LIDOCAINE 5% PATCH TD SCH (13:15)
[2023-06-25] MEDS: MIRALAX 17 GM POWD.PACK PO PRN (13:16)
[2023-06-25] MEDS: LIDOCAINE 5% PATCH TD SCH (15:45)
[2023-06-25 16:00] VITALS: BP 147/69; TEMP 98.4; O2SAT 99
[2023-06-25] MEDS: SENNOSIDES/DOCUSATE SODIUM TABLET PO PRN (18:22)
[2023-06-25] MEDS: ATORVASTATIN 40 MG TABLET PO SCH (21:24)
[2023-06-26 04:15] VITALS: BP 136/66; TEMP 97.8; O2SAT 98
[2023-06-26] MEDS: LEVOTHYROXINE SODIUM 50 MCG TABLET PO SCH (07:00)
[2023-06-26] MEDS: PANTOPRAZOLE SODIUM 40 MG TABLET.DR PO SCH (07:01)
[2023-06-26] MEDS: BLOOD SUGAR DIAGNOSTIC 1 EACH STRIP VI SCH ×4 (07:05→20:32)
[2023-06-26 07:41] VITALS: BP 98/59; TEMP 98.1; O2SAT 96
[2023-06-26 08:20] VITALS: BP 144/69
[2023-06-26] MEDS: NIFEdipine XL 30 MG TABSR PO SCH ×2 (08:24→17:44)
[2023-06-26] MEDS: GABAPENTIN 100 MG CAPSULE PO SCH ×3 (08:25→17:43)
[2023-06-26] MEDS: METFORMIN HCL 500 MG TABLET PO SCH ×2 (08:25→17:44)
[2023-06-26] MEDS: LINAGLIPTIN 5 MG TABLET PO SCH (08:25)
[2023-06-26] MEDS: PROPRANOLOL HCL 40 MG TABLET PO SCH ×2 (08:25→17:43)
[2023-06-26] MEDS: ASPIRIN 81 MG TAB.CHEW PO SCH (08:25)
[2023-06-26] MEDS: VENLAFAXINE XR 37.5 MG CAP.SR.24H PO SCH (08:26)
[2023-06-26] MEDS: AZATHIOPRINE 50 MG TABLET PO SCH (08:27)
[2023-06-26] MEDS: REMEDY ESSENTIAL ZINC PASTE 113 GM TOP SCH ×2 (08:29→20:27)
[2023-06-26] MEDS: MIRALAX 17 GM POWD.PACK PO PRN ×2 (09:20→14:29)
[2023-06-26] MEDS: ONDANSETRON HCL 4 MG TABLET PO PRN (11:56)
[2023-06-26] MEDS: INSULIN REGULAR, HUMAN 300 UNIT/3 ML VIAL SQ PRN (11:57)
[2023-06-26] MEDS ORDERED: BISACODYL 10 MG SUPP.RECT RC PRN (12:15)
[2023-06-26] MEDS: LIDOCAINE 5% PATCH TD SCH (14:29)
[2023-06-26 16:00] VITALS: BP 137/75; TEMP 98.5; O2SAT 99
[2023-06-26] MEDS: OXYCODONE/APAP 5-325 MG TABLET PO PRN (17:09)
[2023-06-26] MEDS: GLUCERNA SHAKE 237 ML CAN PO SCH (17:45)
[2023-06-26] MEDS: ATORVASTATIN 40 MG TABLET PO SCH (20:27)
[2023-06-26 20:34] VITALS: BP 124/71; TEMP 97.7; O2SAT 94
[2023-06-27] MEDS: ACETAMINOPHEN 650 MG/20.3 ML LIQUID UDC PO PRN ×2 (03:51→20:36)
[2023-06-27 04:00] VITALS: BP 127/65; TEMP 97.7; O2SAT 91
[2023-06-27] MEDS: OXYCODONE/APAP 5-325 MG TABLET PO PRN ×2 (05:58→11:20)
[2023-06-27] MEDS: PANTOPRAZOLE SODIUM 40 MG TABLET.DR PO SCH (06:00)
[2023-06-27] MEDS: LEVOTHYROXINE SODIUM 50 MCG TABLET PO SCH (06:00)
[2023-06-27] MEDS: BLOOD SUGAR DIAGNOSTIC 1 EACH STRIP VI SCH ×4 (06:31→20:44)
[2023-06-27 08:00] VITALS: BP 136/71; TEMP 97.6; O2SAT 96
[2023-06-27] MEDS: PROPRANOLOL HCL 40 MG TABLET PO SCH ×2 (09:00→17:04)
[2023-06-27] MEDS: NIFEdipine XL 30 MG TABSR PO SCH ×2 (09:00→17:04)
[2023-06-27] MEDS: ASPIRIN 81 MG TAB.CHEW PO SCH (09:18)
[2023-06-27] MEDS: VENLAFAXINE XR 37.5 MG CAP.SR.24H PO SCH (09:19)
[2023-06-27] MEDS: METFORMIN HCL 500 MG TABLET PO SCH ×2 (09:19→18:33)
[2023-06-27] MEDS: LINAGLIPTIN 5 MG TABLET PO SCH (09:19)
[2023-06-27] MEDS: GABAPENTIN 100 MG CAPSULE PO SCH ×3 (09:20→16:58)
[2023-06-27] MEDS: REMEDY ESSENTIAL ZINC PASTE 113 GM TOP SCH ×2 (09:20→20:43)
[2023-06-27] MEDS: GLUCERNA SHAKE 237 ML CAN PO SCH ×2 (09:21→16:58)
[2023-06-27] MEDS: ONDANSETRON HCL 4 MG TABLET PO PRN (09:43)
[2023-06-27] MEDS: AZATHIOPRINE 50 MG TABLET PO SCH (09:49)
[2023-06-27] MEDS: MIRALAX 17 GM POWD.PACK PO PRN (10:05)
[2023-06-27] MEDS: LIDOCAINE 5% PATCH TD SCH (14:01)
[2023-06-27 16:00] VITALS: BP 134/69; TEMP 97.4; O2SAT 95
[2023-06-27] MEDS ORDERED: OXYCODONE HCL 5 MG TABLET PO PRN (16:45)
[2023-06-27 18:22] VITALS: BP 103/52; TEMP 97.6; O2SAT 95
[2023-06-27] MEDS: ATORVASTATIN 40 MG TABLET PO SCH (20:34)
[2023-06-27 20:58] VITALS: BP 135/72; TEMP 97.9; O2SAT 92
[2023-06-28 04:06] VITALS: BP 116/79; TEMP 98.1; O2SAT 96
[2023-06-28] MEDS: PANTOPRAZOLE SODIUM 40 MG TABLET.DR PO SCH (06:11)
[2023-06-28] MEDS: LEVOTHYROXINE SODIUM 50 MCG TABLET PO SCH (06:11)
[2023-06-28] MEDS: ACETAMINOPHEN 650 MG/20.3 ML LIQUID UDC PO PRN ×2 (06:25→17:13)
[2023-06-28] MEDS: BLOOD SUGAR DIAGNOSTIC 1 EACH STRIP VI SCH ×4 (06:32→20:20)
[2023-06-28 08:28] VITALS: BP 129/67; TEMP 98.2; O2SAT 96
[2023-06-28] MEDS: NIFEdipine XL 30 MG TABSR PO SCH ×2 (08:36→17:04)
[2023-06-28] MEDS: ASPIRIN 81 MG TAB.CHEW PO SCH (08:37)
[2023-06-28] MEDS: PROPRANOLOL HCL 40 MG TABLET PO SCH ×2 (08:37→20:18)
[2023-06-28] MEDS: METFORMIN HCL 500 MG TABLET PO SCH ×2 (08:37→17:04)
[2023-06-28] MEDS: LINAGLIPTIN 5 MG TABLET PO SCH (08:37)
[2023-06-28] MEDS: REMEDY ESSENTIAL ZINC PASTE 113 GM TOP SCH ×2 (08:38→20:20)
[2023-06-28] MEDS: GLUCERNA SHAKE 237 ML CAN PO SCH ×2 (08:38→17:04)
[2023-06-28] MEDS: VENLAFAXINE XR 37.5 MG CAP.SR.24H PO SCH (08:44)
[2023-06-28] MEDS: AZATHIOPRINE 50 MG TABLET PO SCH (08:44)
[2023-06-28] MEDS: GABAPENTIN 100 MG CAPSULE PO SCH (08:45)
[2023-06-28] MEDS ORDERED: PREGABALIN 100 MG CAPSULE PO SCH (09:00)
[2023-06-28] MEDS: INSULIN REGULAR, HUMAN 300 UNIT/3 ML VIAL SQ PRN ×2 (13:31→17:09)
[2023-06-28] MEDS: LIDOCAINE 5% PATCH TD SCH (13:48)
[2023-06-28 16:00] VITALS: BP 121/62; TEMP 98; O2SAT 98
[2023-06-28] MEDS: ATORVASTATIN 40 MG TABLET PO SCH (20:18)
[2023-06-28 20:56] VITALS: BP 146/81; TEMP 98.2; O2SAT 96
[2023-06-29 04:00] VITALS: BP 134/71; TEMP 97.7; O2SAT 97
[2023-06-29] MEDS ORDERED: PREGABALIN 100 MG CAPSULE PO SCH (06:00)
[2023-06-29] MEDS: LEVOTHYROXINE SODIUM 50 MCG TABLET PO SCH (06:22)
[2023-06-29] MEDS: PANTOPRAZOLE SODIUM 40 MG TABLET.DR PO SCH (06:22)
[2023-06-29] MEDS: BLOOD SUGAR DIAGNOSTIC 1 EACH STRIP VI SCH ×4 (06:31→21:42)
[2023-06-29] MEDS: ASPIRIN 81 MG TAB.CHEW PO SCH (10:33)
[2023-06-29] MEDS: VENLAFAXINE XR 37.5 MG CAP.SR.24H PO SCH (10:34)
[2023-06-29] MEDS: LINAGLIPTIN 5 MG TABLET PO SCH (10:34)
[2023-06-29] MEDS: PROPRANOLOL HCL 40 MG TABLET PO SCH ×2 (10:36→21:50)
[2023-06-29] MEDS: NIFEdipine XL 30 MG TABSR PO SCH ×2 (10:37→17:38)
[2023-06-29] MEDS: AZATHIOPRINE 50 MG TABLET PO SCH (10:41)
[2023-06-29] MEDS: METFORMIN HCL 500 MG TABLET PO SCH ×2 (10:41→17:38)
[2023-06-29] MEDS: REMEDY ESSENTIAL ZINC PASTE 113 GM TOP SCH ×2 (10:42→21:51)
[2023-06-29] MEDS: GLUCERNA SHAKE 237 ML CAN PO SCH ×2 (10:42→17:39)
[2023-06-29] MEDS: INSULIN REGULAR, HUMAN 300 UNIT/3 ML VIAL SQ PRN (12:18)
[2023-06-29] MEDS: LIDOCAINE 5% PATCH TD SCH (15:35)
[2023-06-29] MEDS: ACETAMINOPHEN 650 MG/20.3 ML LIQUID UDC PO PRN (15:39)
[2023-06-29 21:14] VITALS: BP 134/77; TEMP 98.3; O2SAT 96
[2023-06-29] MEDS: ATORVASTATIN 40 MG TABLET PO SCH (21:50)
[2023-06-30 04:18] VITALS: BP 105/54; TEMP 98.1; O2SAT 97
[2023-06-30] MEDS: LEVOTHYROXINE SODIUM 50 MCG TABLET PO SCH (06:19)
[2023-06-30] MEDS: PANTOPRAZOLE SODIUM 40 MG TABLET.DR PO SCH (06:19)
[2023-06-30] MEDS: BLOOD SUGAR DIAGNOSTIC 1 EACH STRIP VI SCH ×4 (06:36→20:58)
[2023-06-30 08:00] VITALS: BP 112/68; TEMP 98.1; O2SAT 98
[2023-06-30] MEDS: REMEDY ESSENTIAL ZINC PASTE 113 GM TOP SCH ×2 (09:00→20:49)
[2023-06-30] MEDS: ASPIRIN 81 MG TAB.CHEW PO SCH (09:05)
[2023-06-30] MEDS: METFORMIN HCL 500 MG TABLET PO SCH ×2 (09:05→18:12)
[2023-06-30] MEDS: VENLAFAXINE XR 37.5 MG CAP.SR.24H PO SCH (09:06)
[2023-06-30] MEDS: NIFEdipine XL 30 MG TABSR PO SCH ×2 (09:07→16:26)
[2023-06-30] MEDS: LINAGLIPTIN 5 MG TABLET PO SCH (09:07)
[2023-06-30] MEDS: PROPRANOLOL HCL 40 MG TABLET PO SCH ×2 (09:07→20:48)
[2023-06-30] MEDS: GLUCERNA SHAKE 237 ML CAN PO SCH ×2 (09:08→16:27)
[2023-06-30] MEDS: AZATHIOPRINE 50 MG TABLET PO SCH (09:09)
[2023-06-30] MEDS: INSULIN REGULAR, HUMAN 300 UNIT/3 ML VIAL SQ PRN ×2 (11:27→21:00)
[2023-06-30] MEDS: LIDOCAINE 5% PATCH TD SCH (16:18)
[2023-06-30 17:00] VITALS: BP 130/64; TEMP 98.1; O2SAT 98
[2023-06-30 20:15] VITALS: BP_SYST 143; TEMP 97.6; O2SAT 98
[2023-06-30] MEDS: ACETAMINOPHEN 650 MG/20.3 ML LIQUID UDC PO PRN (20:44)
[2023-06-30] MEDS: ATORVASTATIN 40 MG TABLET PO SCH (20:49)
[2023-07-01 04:00] VITALS: BP 111/65; TEMP 97.8; O2SAT 98
[2023-07-01 04:13] VITALS: BP 120/64; TEMP 98.2; O2SAT 98
[2023-07-01] MEDS: PANTOPRAZOLE SODIUM 40 MG TABLET.DR PO SCH (06:49)
[2023-07-01] MEDS: LEVOTHYROXINE SODIUM 50 MCG TABLET PO SCH (06:49)
[2023-07-01] MEDS: BLOOD SUGAR DIAGNOSTIC 1 EACH STRIP VI SCH ×4 (06:50→20:24)
[2023-07-01] MEDS: NIFEdipine XL 30 MG TABSR PO SCH ×2 (09:18→17:46)
[2023-07-01] MEDS: PROPRANOLOL HCL 40 MG TABLET PO SCH ×2 (09:18→20:18)
[2023-07-01] MEDS: LINAGLIPTIN 5 MG TABLET PO SCH (09:18)
[2023-07-01] MEDS: VENLAFAXINE XR 37.5 MG CAP.SR.24H PO SCH (09:19)
[2023-07-01] MEDS: METFORMIN HCL 500 MG TABLET PO SCH ×2 (09:19→17:46)
[2023-07-01] MEDS: AZATHIOPRINE 50 MG TABLET PO SCH (09:19)
[2023-07-01] MEDS: ASPIRIN 81 MG TAB.CHEW PO SCH (09:19)
[2023-07-01] MEDS: GLUCERNA SHAKE 237 ML CAN PO SCH ×2 (09:19→16:27)
[2023-07-01] MEDS: REMEDY ESSENTIAL ZINC PASTE 113 GM TOP SCH ×2 (09:20→20:18)
[2023-07-01] MEDS: INSULIN REGULAR, HUMAN 300 UNIT/3 ML VIAL SQ PRN ×2 (11:18→16:56)
[2023-07-01] MEDS: LIDOCAINE 5% PATCH TD SCH (13:45)
[2023-07-01 19:30] VITALS: BP 140/79; TEMP 98.2; O2SAT 98
[2023-07-01] MEDS: ATORVASTATIN 40 MG TABLET PO SCH (20:17)
[2023-07-02] MEDS: ACETAMINOPHEN 650 MG/20.3 ML LIQUID UDC PO PRN (00:11)
[2023-07-02 04:30] VITALS: BP 122/70; TEMP 98.5; O2SAT 96
[2023-07-02] MEDS: PANTOPRAZOLE SODIUM 40 MG TABLET.DR PO SCH (06:06)
[2023-07-02] MEDS: LEVOTHYROXINE SODIUM 50 MCG TABLET PO SCH (06:07)
[2023-07-02] MEDS: BLOOD SUGAR DIAGNOSTIC 1 EACH STRIP VI SCH ×4 (06:33→20:48)
[2023-07-02] MEDS: METFORMIN HCL 500 MG TABLET PO SCH ×2 (07:48→17:21)
[2023-07-02] MEDS: INSULIN REGULAR, HUMAN 300 UNIT/3 ML VIAL SQ PRN ×2 (07:49→17:20)
[2023-07-02] MEDS: GLUCERNA SHAKE 237 ML CAN PO SCH ×2 (08:00→17:21)
[2023-07-02] MEDS ORDERED: TIZANIDINE HCL 4 MG TABLET PO PRN (08:45)
[2023-07-02] MEDS: ASPIRIN 81 MG TAB.CHEW PO SCH (09:35)
[2023-07-02] MEDS: PROPRANOLOL HCL 40 MG TABLET PO SCH ×2 (09:36→20:35)
[2023-07-02] MEDS: VENLAFAXINE XR 37.5 MG CAP.SR.24H PO SCH (09:37)
[2023-07-02] MEDS: AZATHIOPRINE 50 MG TABLET PO SCH (09:37)
[2023-07-02] MEDS: NIFEdipine XL 30 MG TABSR PO SCH ×2 (09:37→17:21)
[2023-07-02] MEDS: LINAGLIPTIN 5 MG TABLET PO SCH (09:37)
[2023-07-02] MEDS: REMEDY ESSENTIAL ZINC PASTE 113 GM TOP SCH ×2 (09:38→20:47)
[2023-07-02 12:43] VITALS: BP 128/70
[2023-07-02] MEDS: LIDOCAINE 5% PATCH TD SCH (13:45)
[2023-07-02 16:12] VITALS: BP 127/69; TEMP 98.2; O2SAT 92
[2023-07-02 20:09] VITALS: BP 151/82; TEMP 98.5; O2SAT 96
[2023-07-02] MEDS: ATORVASTATIN 40 MG TABLET PO SCH (20:35)
[2023-07-03] MEDS: ACETAMINOPHEN 650 MG/20.3 ML LIQUID UDC PO PRN (01:26)
[2023-07-03 04:53] VITALS: BP 102/57; TEMP 98; O2SAT 98
[2023-07-03] MEDS: LEVOTHYROXINE SODIUM 50 MCG TABLET PO SCH (06:17)
[2023-07-03] MEDS: PANTOPRAZOLE SODIUM 40 MG TABLET.DR PO SCH (06:17)
[2023-07-03] MEDS: BLOOD SUGAR DIAGNOSTIC 1 EACH STRIP VI SCH ×3 (06:34→17:25)
[2023-07-03 08:00] VITALS: BP 112/61; TEMP 98; O2SAT 99
[2023-07-03] MEDS: METFORMIN HCL 500 MG TABLET PO SCH ×2 (08:05→17:22)
[2023-07-03] MEDS: INSULIN REGULAR, HUMAN 300 UNIT/3 ML VIAL SQ PRN ×2 (08:07→11:57)
[2023-07-03] MEDS: GLUCERNA SHAKE 237 ML CAN PO SCH ×2 (08:08→17:23)
[2023-07-03] MEDS: VENLAFAXINE XR 37.5 MG CAP.SR.24H PO SCH (08:57)
[2023-07-03] MEDS: ASPIRIN 81 MG TAB.CHEW PO SCH (08:57)
[2023-07-03] MEDS: NIFEdipine XL 30 MG TABSR PO SCH ×2 (08:58→17:22)
[2023-07-03] MEDS: LINAGLIPTIN 5 MG TABLET PO SCH (08:59)
[2023-07-03] MEDS: PROPRANOLOL HCL 40 MG TABLET PO SCH (09:00)
[2023-07-03] MEDS: AZATHIOPRINE 50 MG TABLET PO SCH (09:01)
[2023-07-03] MEDS: REMEDY ESSENTIAL ZINC PASTE 113 GM TOP SCH (09:02)
[2023-07-03 12:00] VITALS: BP 114/64; TEMP 98; O2SAT 95
[2023-07-03] MEDS: LIDOCAINE 5% PATCH TD SCH (14:43)
[2023-07-03 16:00] VITALS: BP 146/80; TEMP 98.4; O2SAT 99
[2023-07-03 17:22] VITALS: BP 106/66
== END 2023-07-03 19:30 | disposition home health service (06) | DRG 57 ==
PROVIDERS: ADMIT Physical Medicine & Rehabilitation Pain Medicine; ATTEND Physical Medicine & Rehabilitation Pain Medicine
DX: I69.254 Hemiplegia and hemiparesis following other nontraumatic intracranial hemorrhage affecting left non-dominant side (principal); I69.292 Facial weakness following other nontraumatic intracranial hemorrhage; E03.9 Hypothyroidism, unspecified; E11.42 Type 2 diabetes mellitus with diabetic polyneuropathy; E78.5 Hyperlipidemia, unspecified; Z95.810 Presence of automatic (implantable) cardiac defibrillator; I10 Essential (primary) hypertension; G43.409 Hemiplegic migraine, not intractable, without status migrainosus; M54.81 Occipital neuralgia; D18.02 Hemangioma of intracranial structures; D86.9 Sarcoidosis, unspecified; I48.0 Paroxysmal atrial fibrillation; F32.A Depression, unspecified; G43.909 Migraine, unspecified, not intractable, without status migrainosus; K59.03 Drug induced constipation; T40.2X5A Adverse effect of other opioids, initial encounter; Y92.230 Patient room in hospital as the place of occurrence of the external cause; M24.412 Recurrent dislocation, left shoulder; M21.372 Foot drop, left foot; R29.6 Repeated falls; M54.16 Radiculopathy, lumbar region; Z88.8 Allergy status to other drugs, medicaments and biological substances
CPT/HCPCS: 72125; 72131; 97535-GO-CO; A4663; A6209; A6213; A9150; J1815; J3030; J7500; Q0162